=== PATIENT | female | born 1995 | race Caucasian/White ===

== ENCOUNTER 2018-08-23 13:50 | Emergency (ER) | payer OTHER, MEDICAID, SELFPAY ==
[2018-08-23 13:55] VITALS: BP 103/69; PULSE 92; RESP 20; TEMP 36.8; O2SAT 94
--- NOTE | 2018-08-23 14:39 | ED.PREGNANCY ---
HPI - <LESLIE Hull - Last Filed: 08/23/18 19:59> General Chief complaint: Vaginal Bleeding Stated complaint: 8 WEEKS AND SPOTTING Time Seen by Provider: 08/23/18 14:39 Source: patient and family Mode of arrival: ambulatory Limitations: no limitations History of Present Illness HPI Narrative: Patient presents with chief complaint vaginal bleeding for 2 days. She states that she is having some vaginal bleeding when she wipes after she urinates. She denies any dysuria urgency or frequency. She states she is about 8 weeks . She denies vaginal symptoms including vaginal discharge. She denies any abdominal pain or cramping. She does note that she passed some small clots earlier today. She denies any fevers. Related Data Previous Rx's Medication Instructions Recorded cephalexin 500 mg PO BID #20 cap 08/23/18 Allergies Allergy/AdvReac Type Severity Reaction Status Date / Time No Known Drug Allergies Allergy Verified 08/23/18 13:55 Review of Systems <LESLIE Hull - Last Filed: 08/23/18 19:59> Review of Systems GENERAL: Denies chills, fatigue, malaise, fever, sweats. HEENT: Denies sinus pain, ear pain, sore throat, difficulty swallowing, dizziness. RESPIRATORY: Denies dyspnea, cough, wheezing, hemoptysis, sputum. CARDIOVASCULAR: Denies chest pain, palpitations, orthopnea, edema, GASTROINTESTINAL: Denies nausea, vomiting, abdominal pain, diarrhea, constipation, melena. : See HPI MUSCULOSKELETAL: denies weakness, joint pain, or bony pain SKIN: Denies rash, skin lesions, or other NEUROLOGIC: Denies weakness, headache, numbness, change in speech, confusion, seizures, incoordination. PSYCHIATRIC: No concerning psychosocial issues. 12 point review of systems is negative except for those stated above Exam <LESLIE Hull - Last Filed: 08/23/18 19:59> Narrative Exam Narrative: GENERAL: This is a well-nourished, well-developed patient, in no acute distress HEAD: Atraumatic. Normocephalic. No temporal or scalp tenderness. EYES: Pupils equal round and reactive. Extraocular motions intact. No scleral icterus. No injection or drainage. ENT: Nose without bleeding, purulent drainage or septal hematoma. Throat without erythema, tonsillar hypertrophy or exudate. Uvula midline. Airway patent. NECK: Trachea midline. No JVD or lymphadenopathy. Supple, nontender, no meningeal signs. CARDIOVASCULAR: Regular rate and rhythm without murmurs, gallops, or rubs. RESPIRATORY: Clear to auscultation. Breath sounds equal bilaterally. No wheezes, rales, or rhonchi. GASTROINTESTINAL: Abdomen soft, non-tender, nondistended. No hepato-splenomegaly, or palpable masses. No guarding. No suprapubic pain to palpation. Active bowel sounds all 4 quadrants. EXTREMITIES: No clubbing, cyanosis, or edema. No joint tenderness, effusion, or edema noted. BACK: Nontender without deformity or crepitance. No flank tenderness. NEURO: AOx3. SKIN: No rash or erythema. Initial Vital Signs Initial Vital Signs: Vital Signs Temperature 98.2 F 08/23/18 13:55 Pulse Rate 92 H 08/23/18 13:55 Respiratory Rate 20 08/23/18 13:55 Blood Pressure 103/69 08/23/18 13:55 Pulse Oximetry 94 08/23/18 13:55 <Ponce Jaems DO - Last Filed: 08/27/18 07:15> Initial Vital Signs Initial Vital Signs: Vital Signs Temperature 98.2 F 08/23/18 13:55 Pulse Rate 92 H 08/23/18 13:55 Respiratory Rate 20 08/23/18 13:55 Blood Pressure 103/69 08/23/18 13:55 Pulse Oximetry 94 08/23/18 13:55 Course <LESLIE Hull - Last Filed: 08/23/18 19:59> Orders Ordered: ED Orders 08/23/18 14:54 US OB <= 14 weeks fetus Stat 08/23/18 15:20 ABO RH Type Stat Complete Blood Count AUTO DIFF Stat HCG Quantitative Stat 08/23/18 16:51 Urine Microscopic Stat Vital Signs - 8 hr 08/23/18 13:55 08/23/18 18:10 Temperature 98.2 F Pulse Rate 92 H 79 Respiratory Rate 20 18 Blood Pressure 103/69 100/65 Pulse Oximetry 94 99 <Ponce James DO - Last Filed: 08/27/18 07:15> Orders Ordered: ED Orders 08/23/18 14:54 US OB <= 14 weeks fetus Stat 08/23/18 15:20 ABO RH Type Stat Complete Blood Count AUTO DIFF Stat HCG Quantitative Stat 08/23/18 16:51 Urine Microscopic Stat Vital Signs - 8 hr 08/23/18 13:55 08/23/18 18:10 Temperature 98.2 F Pulse Rate 92 H 79 Respiratory Rate 20 18 Blood Pressure 103/69 100/65 Pulse Oximetry 94 99 MDM - OB/Uterine Contractions <RAQUEL Hull-BC - Last Filed: 08/23/18 19:59> Lab Data Result diagrams: 08/23/18 15:20 Lab Results 08/23/18 08/23/18 08/23/18 Range/Units 15:20 15:20 15:20 WBC 10.7 (4.5-11.0) X10^3/uL RBC 4.63 (4.0-5.2) X10^6/uL Hgb 13.8 (12.0-16.0) g/dL Hct 41.2 (36-46) % MCV 89.1 (80-100) fL MCH 29.8 (26-34) PG MCHC 33.4 (30-36) % RDW 13.0 (11.6-14.8) % Plt Count 236 (150-400) X10^3/uL Neut % (Auto) 70.5 (50-75) % Lymph % (Auto) 22.8 L (25-40) % [place] % (Auto) 4.5 (3-14) % Eos % (Auto) 1.6 L (2-4) % Baso % (Auto) 0.6 (0-2) % Neut # (Auto) 7600 H (0602-3260) /uL HCG, Quant 53001 mIU/mL Urine RBC (0-5/HPF) Urine WBC (0-5/HPF) Ur Squamous Epith Cells Urine Bacteria (None) Ur Culture Indicated? Micro UA Comment Blood Type A Positive 08/23/18 Range/Units 16:51 WBC (4.5-11.0) X10^3/uL RBC (4.0-5.2) X10^6/uL Hgb (12.0-16.0) g/dL Hct (36-46) % MCV (80-100) fL MCH (26-34) PG MCHC (30-36) % RDW (11.6-14.8) % Plt Count (150-400) X10^3/uL Neut % (Auto) (50-75) % Lymph % (Auto) (25-40) % [place] % (Auto) (3-14) % Eos % (Auto) (2-4) % Baso % (Auto) (0-2) % Neut # (Auto) (4646-6927) /uL HCG, Quant mIU/mL Urine RBC 1-5/hpf (0-5/HPF) Urine WBC 0-1/hpf (0-5/HPF) Ur Squamous Epith Cells 1-5 /hpf Urine Bacteria Few (2-10) H (None) Ur Culture Indicated? Not Reportable Micro UA Comment Not Reportable Blood Type Imaging Data US - abdomen: Radiologist's impression: [address] [address] Ultrasound Report Signed Patient: Yomaira Hernandez AMR#: [id number] : 1995Acct:[id number] Age/Sex: 23 / FDate of Service: 08/23/18 Loc: ED Accession Number: [id number] Procedure: US OB <= 14 weeks fetus Ordering Provider: Rosa Griggs- PROCEDURE: US OB <= 14 WEEKS FETUS INDICATIONS: Vaginal bleeding. OUTSIDE/PRIOR DATING DATA: Last menstrual period (LMP): 06/25/2018. LMP-based estimated date of delivery (YVES): Not available. First dating scan (date and location): Not available. Estimated date of delivery (YVES) from first dating scan: Not available. TECHNIQUE: Real-time scanning was performed of the fetus and maternal pelvic organs, with image documentation. COMPARISON: None. FINDINGS: Embryo: An intrauterine gestational sac is identified. No yolk sac or pole can be identified at this time. Gestational sac diameter measures 1.4 x 1.6 x 1.3 cm, for an average estimated gestational age of 6 weeks 2 days. Measurement variability in dating: +/- 4 weeks by LMP, +/- 7 days by mean sac diameter (use before 6 weeks gestation if crown-rump length not able to be measured), +/- 5 days by crown-rump length (up to 8 weeks 6 days gestation), +/- 7 days by crown-rump length (up to 13 weeks 6 days gestation). Maternal organs: Ovaries not seen on this exam. Limited images through the kidneys demonstrate no hydronephrosis. There is a possible 8mm linear echogenic focus in the right kidney which may represent a nonobstructing nephrolith. IMPRESSION: #1. 1.6 x 1.4 x 1.3 cm intrauterine gestational sac, for an average estimated gestational age of 6 weeks 2 days. Please note that no yolk sac, pole, or embryo can be identified at this time, although it may be too early in the to clearly identify these structures. Followup ultrasound with possible CROWN BLOCKER consultation recommended for further evaluation. #2. Ovaries not seen on this exam. #3. Possible 8mm linear echogenic focus in the right kidney may represent a nonobstructing nephrolith. Dictated by: Wilian Padron M.D. on 08/23/2018 at 17:03 Approved by: Wilian Padron M.D. on 08/23/2018 at 17:16 MDM Narrative Medical decision making narrative: Patient presents for chief complaint vaginal bleeding for the past 2 days. This occurs when she wipes only. She is 8 weeks approximately. She denies any abdominal pain. She was noted to have bacteria in her urinalysis, so I will initiate treatment for urinary tract infection with Keflex. Ultrasound showed concern of a blighted ovum. I discussed at length follow up with her primary care provider for reimaging and repeat beta-hCG testing. She had no questions or concerns upon discharge. We discussed return precautions including lightheadedness, dizziness and severe vaginal bleeding. <Ponce James, DO - Last Filed: 08/27/18 07:15> Lab Data Lab Results 08/23/18 08/23/18 08/23/18 Range/Units 15:20 15:20 15:20 WBC 10.7 (4.5-11.0) X10^3/uL RBC 4.63 (4.0-5.2) X10^6/uL Hgb 13.8 (12.0-16.0) g/dL Hct 41.2 (36-46) % MCV 89.1 (80-100) fL MCH 29.8 (26-34) PG MCHC 33.4 (30-36) % RDW 13.0 (11.6-14.8) % Plt Count 236 (150-400) X10^3/uL Neut % (Auto) 70.5 (50-75) % Lymph % (Auto) 22.8 L (25-40) % [place] % (Auto) 4.5 (3-14) % Eos % (Auto) 1.6 L (2-4) % Baso % (Auto) 0.6 (0-2) % Neut # (Auto) 7600 H (3814-1685) /uL HCG, Quant 40600 mIU/mL Urine RBC (0-5/HPF) Urine WBC (0-5/HPF) Ur Squamous Epith Cells Urine Bacteria (None) Ur Culture Indicated? Micro UA Comment Blood Type A Positive 08/23/18 Range/Units 16:51 WBC (4.5-11.0) X10^3/uL RBC (4.0-5.2) X10^6/uL Hgb (12.0-16.0) g/dL Hct (36-46) % MCV (80-100) fL MCH (26-34) PG MCHC (30-36) % RDW (11.6-14.8) % Plt Count (150-400) X10^3/uL Neut % (Auto) (50-75) % Lymph % (Auto) (25-40) % [place] % (Auto) (3-14) % Eos % (Auto) (2-4) % Baso % (Auto) (0-2) % Neut # (Auto) (6514-8853) /uL HCG, Quant mIU/mL Urine RBC 1-5/hpf (0-5/HPF) Urine WBC 0-1/hpf (0-5/HPF) Ur Squamous Epith Cells 1-5 /hpf Urine Bacteria Few (2-10) H (None) Ur Culture Indicated? Not Reportable Micro UA Comment Not Reportable Blood Type Discharge Plan Departure Patient Disposition: Home Clinical Impression: UTI (urinary tract infection), Threatened miscarriage Discharge Date/Time: 08/23/18 18:11 Interventions: ED Discharge Assessment Last Done: 08/23/18 18:10 Instructions: DI for Urinary Tract Infection (UTI), DI for Vaginal Bleeding During Activity Restrictions/Additional Instructions: I am starting you on an antibiotic given the bacteria in your urine. This will treat a urinary tract infection. I would like you to follow up with you primary care provider given your ultrasound results and her vaginal bleeding. You will need to have your beta HCG trended as well as possible future imaging. Please come back to the emergency department for any acute concerns, including signs ear urinary tract infection is worsening. This could include flank pain, fever as well as severe vaginal bleeding or lightheadedness. Please call your primary care provider tomorrow. Prescriptions: New cephalexin 500 mg capsule 500 mg PO BID Qty: 20 RF: 0 Referrals: Joshua Hooker MD [Primary Care Provider] - <Ponce James DO - Last Filed: 08/27/18 07:15> Cosign ED Attending [place] Attestation: I was available for consultation during this patient's emergency department encounter
--- NOTE | 2018-08-23 14:54 | DI.US.S_ITS ---
PROCEDURE: US OB <= 14 WEEKS FETUS INDICATIONS: Vaginal bleeding. OUTSIDE/PRIOR DATING DATA: Last menstrual period (LMP): 06/25/2018. LMP-based estimated date of delivery (YVES): Not available. First dating scan (date and location): Not available. Estimated date of delivery (YVES) from first dating scan: Not available. TECHNIQUE: Real-time scanning was performed of the fetus and maternal pelvic organs, with image documentation. COMPARISON: None. FINDINGS: Embryo: An intrauterine gestational sac is identified. No yolk sac or pole can be identified at this time. Gestational sac diameter measures 1.4 x 1.6 x 1.3 cm, for an average estimated gestational age of 6 weeks 2 days. Measurement variability in dating: +/- 4 weeks by LMP, +/- 7 days by mean sac diameter (use before 6 weeks gestation if crown-rump length not able to be measured), +/- 5 days by crown-rump length (up to 8 weeks 6 days gestation), +/- 7 days by crown-rump length (up to 13 weeks 6 days gestation). Maternal organs: Ovaries not seen on this exam. Limited images through the kidneys demonstrate no hydronephrosis. There is a possible 8mm linear echogenic focus in the right kidney which may represent a nonobstructing nephrolith. IMPRESSION: #1. 1.6 x 1.4 x 1.3 cm intrauterine gestational sac, for an average estimated gestational age of 6 weeks 2 days. Please note that no yolk sac, pole, or embryo can be identified at this time, although it may be too early in the to clearly identify these structures. Followup ultrasound with possible ELEMENTARY PRINCIPAL consultation recommended for further evaluation. #2. Ovaries not seen on this exam. #3. Possible 8mm linear echogenic focus in the right kidney may represent a nonobstructing nephrolith. Dictated by: Wilian Padron M.D. on 08/23/2018 at 17:03 Approved by: Wilian Padron M.D. on 08/23/2018 at 17:16
[2018-08-23 15:30] LABS: Add Manual Diff / Slide Review NO; Basophils Percent Auto 0.6 % (0-2); Eosinophils Percent Auto 1.6 % (2-4); Hematocrit 41.2 % (36-46); Hemoglobin 13.8 g/dL (12.0-16.0); Lymphocytes Percent Auto 22.8 % (25-40); Mean Corpuscular HGB Conc 33.4 % (30-36); Mean Corpuscular Hemoglobin 29.8 PG (26-34); Mean Corpuscular Volume 89.1 fL (80-100); Monocytes Percent Auto 4.5 % (3-14); Neutrophils Absolute Auto 7600 /uL (3000-5900); Neutrophils Percent Auto 70.5 % (50-75); Platelet Count 236 X10^3/uL (150-400); Red Blood Cell Count 4.63 X10^6/uL (4.0-5.2); White Blood Cell Count 10.7 X10^3/uL (4.5-11.0)
[2018-08-23 16:04] LABS: HCG Quantitative /Beta subunit 13713 mIU/mL
[2018-08-23 17:16] LABS: Bacteria Urine Few (2-10); RBC Urine 1-5/HPF (0-5/HPF); Squamous Epithelial Cell Urine 1-5 /HPF; WBC Urine 0-1/HPF (0-5/HPF)
--- NOTE | 2018-08-23 17:48 | ED_ITS ---
HPI - <LESLIE Hull - Last Filed: 08/23/18 19:59> General Chief complaint: Vaginal Bleeding Stated complaint: 8 WEEKS AND SPOTTING Time Seen by Provider: 08/23/18 14:39 Source: patient and family Mode of arrival: ambulatory Limitations: no limitations History of Present Illness HPI Narrative: Patient presents with chief complaint vaginal bleeding for 2 days. She states that she is having some vaginal bleeding when she wipes after she urinates. She denies any dysuria urgency or frequency. She states she is about 8 weeks . She denies vaginal symptoms including vaginal discharge. She denies any abdominal pain or cramping. She does note that she passed some small clots earlier today. She denies any fevers. Related Data Previous Rx's Medication Instructions Recorded cephalexin 500 mg PO BID #20 cap 08/23/18 Allergies Allergy/AdvReac Type Severity Reaction Status Date / Time No Known Drug Allergies Allergy Verified 08/23/18 13:55 Review of Systems <LESLIE Hull - Last Filed: 08/23/18 19:59> Review of Systems GENERAL: Denies chills, fatigue, malaise, fever, sweats. HEENT: Denies sinus pain, ear pain, sore throat, difficulty swallowing, dizziness. RESPIRATORY: Denies dyspnea, cough, wheezing, hemoptysis, sputum. CARDIOVASCULAR: Denies chest pain, palpitations, orthopnea, edema, GASTROINTESTINAL: Denies nausea, vomiting, abdominal pain, diarrhea, constipation, melena. : See HPI MUSCULOSKELETAL: denies weakness, joint pain, or bony pain SKIN: Denies rash, skin lesions, or other NEUROLOGIC: Denies weakness, headache, numbness, change in speech, confusion, seizures, incoordination. PSYCHIATRIC: No concerning psychosocial issues. 12 point review of systems is negative except for those stated above Exam <LESLIE Hull - Last Filed: 08/23/18 19:59> Narrative Exam Narrative: GENERAL: This is a well-nourished, well-developed patient, in no acute distress HEAD: Atraumatic. Normocephalic. No temporal or scalp tenderness. EYES: Pupils equal round and reactive. Extraocular motions intact. No scleral icterus. No injection or drainage. ENT: Nose without bleeding, purulent drainage or septal hematoma. Throat without erythema, tonsillar hypertrophy or exudate. Uvula midline. Airway patent. NECK: Trachea midline. No JVD or lymphadenopathy. Supple, nontender, no meningeal signs. CARDIOVASCULAR: Regular rate and rhythm without murmurs, gallops, or rubs. RESPIRATORY: Clear to auscultation. Breath sounds equal bilaterally. No wheezes , rales, or rhonchi. GASTROINTESTINAL: Abdomen soft, non-tender, nondistended. No hepato-splenomegaly , or palpable masses. No guarding. No suprapubic pain to palpation. Active bowel sounds all 4 quadrants. EXTREMITIES: No clubbing, cyanosis, or edema. No joint tenderness, effusion, or edema noted. BACK: Nontender without deformity or crepitance. No flank tenderness. NEURO: AOx3. SKIN: No rash or erythema. Initial Vital Signs Initial Vital Signs: Vital Signs Temperature 98.2 F 08/23/18 13:55 Pulse Rate 92 H 08/23/18 13:55 Respiratory Rate 20 08/23/18 13:55 Blood Pressure 103/69 08/23/18 13:55 Pulse Oximetry 94 08/23/18 13:55 <Ponce James DO - Last Filed: 08/27/18 07:15> Initial Vital Signs Initial Vital Signs: Vital Signs Temperature 98.2 F 08/23/18 13:55 Pulse Rate 92 H 08/23/18 13:55 Respiratory Rate 20 08/23/18 13:55 Blood Pressure 103/69 08/23/18 13:55 Pulse Oximetry 94 08/23/18 13:55 Course <LESLIE Hull - Last Filed: 08/23/18 19:59> Orders Ordered: ED Orders 08/23/18 14:54 US OB <= 14 weeks fetus Stat 08/23/18 15:20 ABO RH Type Stat Complete Blood Count AUTO DIFF Stat HCG Quantitative Stat 08/23/18 16:51 Urine Microscopic Stat Vital Signs - 8 hr 08/23/18 13:55 08/23/18 18:10 Temperature 98.2 F Pulse Rate 92 H 79 Respiratory Rate 20 18 Blood Pressure 103/69 100/65 Pulse Oximetry 94 99 <Ponce James DO - Last Filed: 08/27/18 07:15> Orders Ordered: ED Orders 08/23/18 14:54 US OB <= 14 weeks fetus Stat 08/23/18 15:20 ABO RH Type Stat Complete Blood Count AUTO DIFF Stat HCG Quantitative Stat 08/23/18 16:51 Urine Microscopic Stat Vital Signs - 8 hr 08/23/18 13:55 08/23/18 18:10 Temperature 98.2 F Pulse Rate 92 H 79 Respiratory Rate 20 18 Blood Pressure 103/69 100/65 Pulse Oximetry 94 99 MDM - OB/Uterine Contractions <RAQUEL Hull-BC - Last Filed: 08/23/18 19:59> Lab Data Result diagrams: 08/23/18 15:20 Lab Results 08/23/18 08/23/18 08/23/18 Range/Units 15:20 15:20 15:20 WBC 10.7 (4.5-11.0) X10^3/uL RBC 4.63 (4.0-5.2) X10^6/uL Hgb 13.8 (12.0-16.0) g/dL Hct 41.2 (36-46) % MCV 89.1 (80-100) fL MCH 29.8 (26-34) PG MCHC 33.4 (30-36) % RDW 13.0 (11.6-14.8) % Plt Count 236 (150-400) X10^3/uL Neut % (Auto) 70.5 (50-75) % Lymph % (Auto) 22.8 L (25-40) % [place] % (Auto) 4.5 (3-14) % Eos % (Auto) 1.6 L (2-4) % Baso % (Auto) 0.6 (0-2) % Neut # (Auto) 7600 H (8849-8302) /uL HCG, Quant 24594 mIU/mL Urine RBC (0-5/HPF) Urine WBC (0-5/HPF) Ur Squamous Epith Cells Urine Bacteria (None) Ur Culture Indicated? Micro UA Comment Blood Type A Positive 08/23/18 Range/Units 16:51 WBC (4.5-11.0) X10^3/uL RBC (4.0-5.2) X10^6/uL Hgb (12.0-16.0) g/dL Hct (36-46) % MCV (80-100) fL MCH (26-34) PG MCHC (30-36) % RDW (11.6-14.8) % Plt Count (150-400) X10^3/uL Neut % (Auto) (50-75) % Lymph % (Auto) (25-40) % [place] % (Auto) (3-14) % Eos % (Auto) (2-4) % Baso % (Auto) (0-2) % Neut # (Auto) (3407-0984) /uL HCG, Quant mIU/mL Urine RBC 1-5/hpf (0-5/HPF) Urine WBC 0-1/hpf (0-5/HPF) Ur Squamous Epith Cells 1-5 /hpf Urine Bacteria Few (2-10) H (None) Ur Culture Indicated? Not Reportable Micro UA Comment Not Reportable Blood Type Imaging Data US - abdomen: Radiologist's impression: [address] [address] Ultrasound Report Signed Patient: Yomaira Hernandez AMR#: [id number] : 1995Acct:[id number] Age/Sex: 23 / FDate of Service: 08/23/18 Loc: ED Accession Number: [id number] Procedure: US OB <= 14 weeks fetus Ordering Provider: Rosa Griggs- PROCEDURE: US OB <= 14 WEEKS FETUS INDICATIONS: Vaginal bleeding. OUTSIDE/PRIOR DATING DATA: Last menstrual period (LMP): 06/25/2018. LMP-based estimated date of delivery (YVES): Not available. First dating scan (date and location): Not available. Estimated date of delivery (YVES) from first dating scan: Not available. TECHNIQUE: Real-time scanning was performed of the fetus and maternal pelvic organs, with image documentation. COMPARISON: None. FINDINGS: Embryo: An intrauterine gestational sac is identified. No yolk sac or pole can be identified at this time. Gestational sac diameter measures 1.4 x 1.6 x 1.3 cm, for an average estimated gestational age of 6 weeks 2 days. Measurement variability in dating: +/- 4 weeks by LMP, +/- 7 days by mean sac diameter (use before 6 weeks gestation if crown-rump length not able to be measured), +/ - 5 days by crown-rump length (up to 8 weeks 6 days gestation), +/- 7 days by crown-rump length (up to 13 weeks 6 days gestation). Maternal organs: Ovaries not seen on this exam. Limited images through the kidneys demonstrate no hydronephrosis. There is a possible 8mm linear echogenic focus in the right kidney which may represent a nonobstructing nephrolith. IMPRESSION: #1. 1.6 x 1.4 x 1.3 cm intrauterine gestational sac, for an average estimated gestational age of 6 weeks 2 days. Please note that no yolk sac, pole, or embryo can be identified at this time, although it may be too early in the to clearly identify these structures. Followup ultrasound with possible JAVA DEVELOPMENT TEAM LEAD consultation recommended for further evaluation. #2. Ovaries not seen on this exam. #3. Possible 8mm linear echogenic focus in the right kidney may represent a nonobstructing nephrolith. Dictated by: Wilian Padron M.D. on 08/23/2018 at 17:03 Approved by: Wilian Padron M.D. on 08/23/2018 at 17:16 MDM Narrative Medical decision making narrative: Patient presents for chief complaint vaginal bleeding for the past 2 days. This occurs when she wipes only. She is 8 weeks approximately. She denies any abdominal pain. She was noted to have bacteria in her urinalysis, so I will initiate treatment for urinary tract infection with Keflex. Ultrasound showed concern of a blighted ovum. I discussed at length follow up with her primary care provider for reimaging and repeat beta-hCG testing. She had no questions or concerns upon discharge. We discussed return precautions including lightheadedness, dizziness and severe vaginal bleeding. <Ponce James, DO - Last Filed: 08/27/18 07:15> Lab Data Lab Results 08/23/18 08/23/18 08/23/18 Range/Units 15:20 15:20 15:20 WBC 10.7 (4.5-11.0) X10^3/uL RBC 4.63 (4.0-5.2) X10^6/uL Hgb 13.8 (12.0-16.0) g/dL Hct 41.2 (36-46) % MCV 89.1 (80-100) fL MCH 29.8 (26-34) PG MCHC 33.4 (30-36) % RDW 13.0 (11.6-14.8) % Plt Count 236 (150-400) X10^3/uL Neut % (Auto) 70.5 (50-75) % Lymph % (Auto) 22.8 L (25-40) % [place] % (Auto) 4.5 (3-14) % Eos % (Auto) 1.6 L (2-4) % Baso % (Auto) 0.6 (0-2) % Neut # (Auto) 7600 H (6173-5870) /uL HCG, Quant 76338 mIU/mL Urine RBC (0-5/HPF) Urine WBC (0-5/HPF) Ur Squamous Epith Cells Urine Bacteria (None) Ur Culture Indicated? Micro UA Comment Blood Type A Positive 08/23/18 Range/Units 16:51 WBC (4.5-11.0) X10^3/uL RBC (4.0-5.2) X10^6/uL Hgb (12.0-16.0) g/dL Hct (36-46) % MCV (80-100) fL MCH (26-34) PG MCHC (30-36) % RDW (11.6-14.8) % Plt Count (150-400) X10^3/uL Neut % (Auto) (50-75) % Lymph % (Auto) (25-40) % [place] % (Auto) (3-14) % Eos % (Auto) (2-4) % Baso % (Auto) (0-2) % Neut # (Auto) (7387-4210) /uL HCG, Quant mIU/mL Urine RBC 1-5/hpf (0-5/HPF) Urine WBC 0-1/hpf (0-5/HPF) Ur Squamous Epith Cells 1-5 /hpf Urine Bacteria Few (2-10) H (None) Ur Culture Indicated? Not Reportable Micro UA Comment Not Reportable Blood Type Discharge Plan Departure Patient Disposition: Home Clinical Impression: UTI (urinary tract infection), Threatened miscarriage Discharge Date/Time: 08/23/18 18:11 Interventions: ED Discharge Assessment Last Done: 08/23/18 18:10 Instructions: DI for Urinary Tract Infection (UTI), DI for Vaginal Bleeding During Activity Restrictions/Additional Instructions: I am starting you on an antibiotic given the bacteria in your urine. This will treat a urinary tract infection. I would like you to follow up with you primary care provider given your ultrasound results and her vaginal bleeding. You will need to have your beta HCG trended as well as possible future imaging. Please come back to the emergency department for any acute concerns, including signs ear urinary tract infection is worsening. This could include flank pain, fever as well as severe vaginal bleeding or lightheadedness. Please call your primary care provider tomorrow. Prescriptions: New cephalexin 500 mg capsule 500 mg PO BID Qty: 20 RF: 0 Referrals: Joshua Hooker MD [Primary Care Provider] - <Ponce James DO - Last Filed: 08/27/18 07:15> Cosign ED Attending [place] Attestation: I was available for consultation during this patient's emergency department encounter
[2018-08-23 18:10] VITALS: BP 100/65; PULSE 79; RESP 18; O2SAT 99
== END 2018-08-23 18:11 | disposition home or self-care (01) ==
PROVIDERS: Emergency Provider Nurse Practitioner Family; Family Provider Family Medicine; PCP Family Medicine
DX: O20.0 Threatened abortion (principal); O23.41 Unspecified infection of urinary tract in pregnancy, first trimester; Z3A.08 8 weeks gestation of pregnancy
CPT/HCPCS: 36415; 76801; 76817; 81015; 84702; 85025; 86900; 86901; 99282; 99284

== ENCOUNTER → 2019-04-16 15:39 | Outpatient (CLI) | payer OTHER, MEDICAID, SELFPAY ==
--- NOTE | 2019-04-16 15:43 | DI.US.S_ITS ---
PROCEDURE: US OB <= 14 WEEKS FETUS INDICATIONS: SIZE AND DATES OUTSIDE/PRIOR DATING DATA: Last menstrual period (LMP): 02/21/19. LMP-based estimated date of delivery (YVES): 11/28/19. First dating scan (date and location): 04/16/19. Estimated date of delivery (YVES) from first dating scan: 12/03/19. TECHNIQUE: Real-time scanning was performed of the fetus and maternal pelvic organs, with image documentation. Endovaginal scanning was also performed to better visualize the fetus and maternal ovaries. COMPARISON: [facility], OB <= 14 WEEKS FETUS, 08/23/2018, 16:32. FINDINGS: Embryo: An single living intrauterine fetus present with a crown-rump length measuring 7 weeks zero days. heart rate measures 143 beats per minute. Yolk sac noted. Measurement variability in dating: +/- 4 weeks by LMP, +/- 7 days by mean sac diameter (use before 6 weeks gestation if crown-rump length not able to be measured), +/- 5 days by crown-rump length (up to 8 weeks 6 days gestation), +/- 7 days by crown-rump length (up to 13 weeks 6 days gestation). Maternal organs: Ovaries unremarkable except for a presumed right ovarian corpus luteum. 1.5 cm simple appearing right ovarian cyst. Limited images through the kidneys demonstrate no hydronephrosis. IMPRESSION: Single living intrauterine fetus with gestational age measuring 7 weeks zero days, corresponding to an YVES of 12/03/19 which is concordant with the reported LMP as above. Dictated by: Camron Palmer M.D. on 04/16/2019 at 17:11 Approved by: Camron Palmer M.D. on 04/16/2019 at 17:15
== END ==
PROVIDERS: PCP Family Medicine; Visit Provider Family Medicine
DX: Z34.91 Encounter for supervision of normal pregnancy, unspecified, first trimester (principal); Z3A.01 Less than 8 weeks gestation of pregnancy
CPT/HCPCS: 76801; 76817

== ENCOUNTER → 2019-07-09 08:55 | Outpatient (CLI) | payer OTHER, MEDICAID, SELFPAY ==
--- NOTE | 2019-07-09 | DI.US.S_ITS ---
PROCEDURE: US OB >= 14 WEEKS FETUS INDICATIONS: ANATOMY SCAN OUTSIDE/PRIOR DATING DATA: Last menstrual period (LMP): 02/21/19. LMP-based estimated date of delivery (YVES): 11/28/19. First dating scan (date and location): 04/16/19. Estimated date of delivery (YVES) from first dating scan: 12/03/19.. TECHNIQUE: Real-time scanning was performed of the fetus, with image documentation and biometric measurements. Endovaginal scanning: No COMPARISON: None. FINDINGS: General: A single living intrauterine gestation is present. Presentation: Breech. Placenta: Placental position is anterior, without previa. Amniotic fluid index: 16.9 cm, normal range is 5-24 cm. heart rate: 131 beats per minute. Maternal cervical canal: 3.2 cm long. Normal lower limit is 2.5 cm. biometrics: Biparietal diameter: 19 weeks 4 days Head circumference: 19 weeks 4 days Abdominal circumference: 19 weeks 3 days Femur length: 19 weeks 1 day Estimated gestational age from initial scan: 19 weeks 0 days Composite gestational age from present scan: 19 weeks 3 days Estimated weight and percentile: 287 g; 66 percentile Measurement variability for biometric dating: +/- 7 days from 14 weeks to 15 weeks 6 days gestation, +/- 10 days from 16 weeks to 21 weeks 6 days gestation, +/- 2 weeks from 22 weeks to 27 weeks 6 days gestation, +/- 3 weeks for 28 weeks gestation or later. weight reference: 4500 g or EFW >90/95% is considered macrosomia or large for gestational age. EFW <10% is small for gestational age. EFW 5% or less is considered intra-uterine growth restriction. Anatomic survey: Neuro: Ventricles are non-dilated at less than 10 mm. Cisterna magna is normal at 3-11 mm. Cerebellum is normal in size and morphology. Nuchal skin fold: Normal at less than 6 mm between 14-21 weeks gestational age. Face: Nose and lips are normal and the facial profile not well-seen. Spine: No evidence for spina bifida. Heart: 4-chambered heart is present, with normal ventricular outflow tracts. Diaphragm: Diaphragm is intact. Stomach: Left-sided stomach is present. Kidneys: No hydronephrosis. Normal is less than 5 mm in 2nd trimester, less than 7 mm in 3rd trimester. Cord: 3-vessel cord has orthotopic insertion. Bladder: Normal in size. Extremities: All 4 extremities identified. IMPRESSION: 1. Normal interval growth. 2. Facial profile not well-visualized; otherwise normal anatomy. Dictated by: Jay PACE Interpreted: Lorena Calhoun MD on 07/09/2019 at 16:05 Approved by: Lorena Calhoun M.D. on 07/09/2019 at 16:17
== END ==
PROVIDERS: Visit Provider Family Medicine
DX: Z36.89 Encounter for other specified antenatal screening (principal); Z3A.19 19 weeks gestation of pregnancy
CPT/HCPCS: 76811

== ENCOUNTER → 2019-11-01 18:38 | Outpatient (ROUT) | payer OTHER, MEDICAID, SELFPAY | PROVIDERS: Visit Provider Family Medicine | DX: Z36.85 Encounter for antenatal screening for Streptococcus B (principal) | CPT/HCPCS: 87081 ==

== ENCOUNTER 2019-12-01 18:52 | Observation (INO) | payer OTHER, MEDICAID, SELFPAY ==
[2019-12-01 21:13] LABS: Add Manual Diff / Slide Review NO; Basophils Absolute Auto 0 /uL (0-100); Basophils Percent Auto 0.2 % (0-2); Eosinophils Absolute Auto 200 /uL (0-450); Eosinophils Percent Auto 1.1 % (2-4); Hemoglobin 12.7 g/dL (12.0-16.0); Lymphocytes Absolute Auto 2500 /uL (1100-4500); Lymphocytes Percent Auto 17.1 % (25-40); Mean Corpuscular HGB Conc 33.5 % (30-36); Mean Corpuscular Hemoglobin 29.8 PG (26-34); Mean Corpuscular Volume 88.7 fL (80-100); Monocytes Absolute Auto 1000 /uL (0-900); Monocytes Percent Auto 6.5 % (3-14); Neutrophils Absolute Auto 11100 /uL (1500-7000); Neutrophils Percent Auto 75.1 % (50-75); Platelet Count 290 X10^3/uL (150-400); Red Blood Cell Count 4.28 X10^6/uL (4.0-5.2); Red Cell Distribution Width 12.9 % (11.6-14.8); White Blood Cell Count 14.8 X10^3/uL (4.5-11.0)
[2019-12-01] MEDS: miSOPROStoL 25 MCG TABLET VAG (21:30)
[2019-12-02 00:45] VITALS: BP 118/68
[2019-12-02] MEDS: miSOPROStoL 25 MCG TABLET VAG ×2 (01:30→05:33)
--- NOTE | 2019-12-02 07:50 | PM.OBTRLD ---
Visit Information Visit Information Date of evaluation: 12/02/19 Primary OB Provider: Max Peres Reason for Evaluation: Yes other Comments/Additional reasons for admission: Patient is a brought in last night for elective induction at 40 weeks 3/7 weeks . Patient has had an uncomplicated GBS negative no other changes. Hematocrit was stable. Cytotec x3 was placed last night. She did get some moderate cervical change but only had a patient score of 7 this morning. Patient had some slight bloody show. No evidence of rupture. heart monitor was reactive. Vital Signs Vital Signs: Vital Signs - 8 hr 12/02/19 00:45 Blood Pressure 118/68 PFSH Social History Smoking Status: Former smoker Exam Vital Signs (past 8 hours): - 12/02/19 00:45 Blood Pressure 118/68 Narrative Exam Narrative: Alert smiling female no acute distress. Lungs are clear. Heart regular rate and rhythm. Abdomen is soft positive bowel sounds nontender. Gravid. Estimated weight 6-1/2 lb. Sterile vaginal exam shows cervix 1 70% -1 intact vertex. Extremities without cyanosis clubbing edema Objective Labs Result Diagrams: 12/01/19 20:00 Labs: Laboratory Results - last 24 hr 12/01/19 12/01/19 20:00 20:00 WBC 14.8 H RBC 4.28 Hgb 12.7 Hct 38.0 MCV 88.7 MCH 29.8 MCHC 33.5 RDW 12.9 Plt Count 290 Neut % (Auto) 75.1 H Lymph % (Auto) 17.1 L Boone % (Auto) 6.5 Eos % (Auto) 1.1 L Baso % (Auto) 0.2 Neut # (Auto) 67792 H Lymph # (Auto) 2500 Boone # (Auto) 1000 H Eos # (Auto) 200 Baso # (Auto) 0 Blood Type A Positive Antibody Screen Negative Evaluation Evaluation Baseline heart rate: 140 Category of Tracing: I Cervical dilation (cm): 1 Cervical effacement (%): 70 station: -1 Laboratory results: Laboratory Tests 12/01/19 12/01/19 20:00 20:00 WBC 14.8 H RBC 4.28 Hgb 12.7 Hct 38.0 MCV 88.7 MCH 29.8 MCHC 33.5 RDW 12.9 Plt Count 290 Neut % (Auto) 75.1 H Lymph % (Auto) 17.1 L Bo[place] % (Auto) 6.5 Eos % (Auto) 1.1 L Baso % (Auto) 0.2 Neut # (Auto) 18926 H Lymph # (Auto) 2500 Boone # (Auto) 1000 H Eos # (Auto) 200 Baso # (Auto) 0 Blood Type A Positive Antibody Screen Negative Diagnosis, Plan/Disposition Plan/Disposition Plan: 4 4/7 weeks here for elective induction. While she did get some slight change not adequate for Pitocin or rupture. Discussed with patient. Will discharge home with usual labor precautions. She will call if any issues Cervidil tonight. Hopefully proceed tomorrow. OB Disposition: home
== END 2019-12-02 08:45 | disposition home or self-care (01) ==
PROVIDERS: Admitting Provider Family Medicine; Referring Provider Family Medicine; Visit Provider Family Medicine
DX: Z34.03 Encounter for supervision of normal first pregnancy, third trimester (principal); Z3A.40 40 weeks gestation of pregnancy
CPT/HCPCS: 85025; 86850; 86900; 86901; G0378; G0379

== ENCOUNTER 2019-12-02 13:19 | Inpatient (IN) | payer OTHER, MEDICAID, SELFPAY ==
[2019-12-02] MEDS: hydrOXYzine 50 MG/ML INJ 25 MG IM (14:15)
[2019-12-02] MEDS: MEPERIDINE 50 MG/ML INJ IM (14:16)
[2019-12-02 15:15] VITALS: BP 113/80
--- NOTE | 2019-12-02 17:38 | P.HPOB_ITS ---
OB HPI Date/Time Date of admission: 12/02/19 Date Patient Seen: 12/02/19 Time Patient Seen: 17:39 History of Present Condition Chief complaint: MATERNITY : 1 Para: 0 Estimated Date of Delivery: 11/28/19 Estimated Gestational Age (weeks): 40 4\7 Narrative: Yomaira Hernandez is a 24 year old female with EDC of 11/28/2019. Patient overall has had unremarkable . No significant problems or issues GBS negative. Other labs unremarkable. She has had a normal sequential screen without any other issues. Growth has been good. She has had no labor or other issues she was brought in last night for induction for elective and early post dates. She was given 3 Cytotec and not a lot of cervic al change Mitchell score was 7 she came back in with rupture at approximately 11:00 a.m. with clear fluid. Has not had a lot since that time. No other changes. heart monitor is been reactive throughout the course and she is currently asking for pain medication Indications Indication for induction OB: post dates History of Present care: good care Dating criteria: LMP confirmed by 1st trimester US Ultrasounds: normal mid trimester US Obstetrical complications: none Medical complications: none Preadmission Labs Blood type: A (+) positive -: Antibody screen: negative, GBS status: negative, HBsAG: negative, HIV: negative, HSV 1: negative, HSV 2: negative and RPR/VDLR: negative -: Chlamydia screen: not detected and Gonorrhea screen: not detected -: Rubella: immune and Varicella: immune HCAB: negative PAP: Normal Sequential screen: Normal 1 hr GTT: 116 Prior (ies) History: None Evaluation Evaluation Baseline heart rate: 140 Cervical dilation (cm): 3 Cervical effacement (%): 80 station: -1 Non-invasive Membranes Rupture Test: positive [facility] Social History Smoking Status: Former smoker Meds Home Medications and Allergies Allergies Allergy/AdvReac Type Severity Reaction Status Date / Time No Known Drug Allergies Allergy Verified 08/23/18 13:55 Review of Systems Review of Systems ROS: Yes All systems reviewed with the patient and are negative except as otherwise documented Exam Vital Signs (past 8 hours): - 12/02/19 15:15 Blood Pressure 113/80 Narrative Exam Narrative: Alert female intermittently uncomfortable smiling otherwise. Mucous membranes moist. Neck supple without thyromegaly. Lungs are clear. Heart is regular rate and rhythm without murmurs clicks rubs or gallops. Abdomen is gravid vertex extremities without significant edema. Normal reflexes Assessment and Plan Assessment and Plan Assessment and Plan narrative: Forty and 4 7th week intrauterine status post rupture with cervical change. GBS negative heart monitor reactive requesting anesthesia she was previously given Demerol with adequate results but now that were starting to change will place epidural. Contractions are every 1-3 minutes and seemed to be improving in intensity will hold Pitocin for now recheck in 2-4 hours.
[2019-12-02] MEDS: LACTATED RINGERS 1,000 ML 100 ML IV ×2 (18:00→21:57)
[2019-12-02] MEDS: FENT 2MCG/ML BUPIV 0.125% EPI 200 MCG/100 ML PLAST..BAG 10 MCG EPIDURAL (19:01)
[2019-12-02] MEDS: OXYTOCIN PREMIX 30 UNIT/500 ML PLAST..BAG IV (21:57)
[2019-12-02] MEDS: ONDANSETRON 4 MG/2 ML INJ IV (22:52)
[2019-12-03] MEDS: FENT 2MCG/ML BUPIV 0.125% EPI 200 MCG/100 ML PLAST..BAG 10 MCG EPIDURAL (00:45)
[2019-12-03] MEDS: ONDANSETRON 4 MG/2 ML INJ IV (05:15)
--- NOTE | 2019-12-03 07:19 | PM.OBPRVD ---
 Events: Labor Induction Labor & Delivery Delivery date: 12/03/19 Cervical ripening method: per misoprostal protocol Induction method: none Delivery augmentation: pitocin Delivery monitor: external FHT Route of delivery: Episiotomy description: None L&D Laceration Description: None Estimated blood loss (mL): 250 Anesthesia type: Epidural Narrative: Patient was brought in on night before delivery for induction for postdates an elective request. Cytotec was given 3 times a with night and minimal cervical change was obtained. Patient was then sent home. heart monitor throughout the night was excellent. Category 1. Patient at 11:00 a.m. spontaneous rupture of membranes. Yellowish fluid. No other issues. Baby was moving well. Presented to the hospital. heart monitors were excellent. She was given Demerol and Vistaril. Good control. She was then placed into the bath for a few hours. She started having increasing contractions cervix then went from fingertips to 2-3 and 80%. She slowly made change in requested epidural. Placed with excellent results. She had Pitocin started around 11 p.m. and was slowly increased over the night to 12 milliunits. She progressed well. heart monitor was category 1 throughout the 1st stage. She labor down and second-stage began. Patient pushed well. Excellent control. No evidence of significant meconium but otherwise no change. Some heart rate discolorations into the 80s and baby was on perineum. Oxygen was applied. Delivered way over 1st degree jaun urethral tears and small vaginal midline tear. Child up on mom's abdomen. No resuscitation was required. Short cord which was clamped and cut by dad. Placenta delivered spontaneous intact 3 vessels. Pitocin was started at run bolus. Uterus was normal on firm and moderate amount of bleeding. Aggressive fundal massage improved. 800 mcg of Cytotec were applied rectally. No repair was required. Uterus remained firm. No further bleeding. EBL less than 250 cc. Mother and infant in stable condition. Plan for aftercare: Routine care.
[2019-12-03 10:29] VITALS: TEMP 38.3
[2019-12-03] MEDS: ACETAMINOPHEN 325 MG TABLET 650 MG PO ×2 (10:29→20:06)
[2019-12-03 10:30] VITALS: TEMP 38.3
[2019-12-03] MEDS: IBUPROFEN 600 MG TABLET PO ×2 (10:30→20:04)
[2019-12-03] MEDS: LANOLIN OINT 7 GM 1 APPLIC TOP (14:58)
[2019-12-03] MEDS: DERMOPLAST SPRAY 20% 60 ML 1 SPRAY TOP (14:58)
[2019-12-04 06:41] LABS: Hematocrit 30.8 % (36-46); Hemoglobin 10.5 g/dL (12.0-16.0)
[2019-12-04 09:41] VITALS: BP 113/80; PULSE 80; RESP 18; TEMP 36.2
--- NOTE | 2019-12-04 13:53 | PM.DS.1 ---
History of Present Illness History of Present Illness Date Patient Seen: 12/04/19 Time Patient Seen: 08:04 Chief complaint: MATERNITY Narrative: Patient here for evaluation of rupture at 11:00 a.m.. Please see full H&P was ruptured and admitted Discharge Providers Provider Date of admission: 12/02/19 13:19 Discharge Date: 12/04/19 Consults: 12/04/19 07:16 Consult to Medicaid Eligibility Specialist Routine Comment: Discharge provider: Max Peres MD Summary Hospital Course Discharge Diagnosis: Term intrauterine Hospital Course: Please see delivery note. Patient had vaginal delivery and was transferred to recovery. She had minimal bleeding and had no other significant probl. Hematocrit was 30. No other changes. Breast-feeding was going well. No pain. No other changes. Wanted to go home on day 1 and was discharged to home. Status at Discharge Functional status at discharge: independent ambulation Overall status at discharge: patient is progressing back to baseline Time Spent with Patient Time spent: Greater than 30 minutes Exam Vital Signs (past 8 hours): - 12/04/19 09:41 Temperature 97.2 F L Pulse Rate 80 Respiratory Rate 18 Blood Pressure 113/80 Narrative Exam Narrative: Alert smiling female mildly fatigued no acute distress Mucous membranes moist. Neck supple without adenopathy. Lungs are clear. Heart regular rate and rhythm without murmurs clicks rubs gallops. Uterus is firm at umbilicus. Extremities without cyanosis clubbing edema. Objective Labs Result Diagrams: 12/04/19 06:27 Labs: Laboratory Results - last 24 hr 12/04/19 06:27 Hgb 10.5 L Hct 30.8 L Discharge Plan Discharge Plan Patient Disposition: Home Discharge orders & Medications Prescriptions: New ibuprofen 600 mg Tablet 600 mg PO Q6HR PRN (Reason: Pain, Mild (1-3)) Qty: 90 RF: 1 docusate sodium [Colace] 100 mg capsule 100 mg PO BID Qty: 60 RF: 0 Continued Classic 28 mg iron- 800 mcg Tablet 1 tab PO DAILY RF: 0 Follow up/Referrals: Max Peres MD [Physician] - 01/15/20 3:30 pm Diet/Activity/Treatments Diet: Diet as Tolerated Activity: no intercourse six weeks Skin/Wound/Dressing Care Report to your healthcare provider any signs of infection, such as:: chills, fever, night sweats, increased pain, unusual drainage and unusual redness Visit Report/Discharge Packet Stand Alone Forms: Discharge: Care Discharges patient from system. Discharge Date/Time: 12/04/19 12:10
== END 2019-12-04 12:10 | disposition home or self-care (01) | DRG 560 ==
PROVIDERS: Admitting Provider Family Medicine; Referring Provider Family Medicine; Visit Provider Family Medicine
DX: O48.0 Post-term pregnancy (principal); Z3A.40 40 weeks gestation of pregnancy; Z37.0 Single live birth; O77.0 Labor and delivery complicated by meconium in amniotic fluid
CPT/HCPCS: 01967; 36415; 59050; 84112; 85014; 85018; 85025; 86850; 86900; 86901; G0378; G0379; J2175; J2405; J2590; J3410

== ENCOUNTER → 2020-04-28 10:33 | Outpatient (CLI) | payer OTHER, MEDICAID, SELFPAY ==
--- NOTE | 2020-04-28 | DI.US.S_ITS ---
PROCEDURE: US OB <= 14 WEEKS FETUS INDICATIONS: SIZE AND DATES OUTSIDE/PRIOR DATING DATA: First dating scan (date and location): 04/28/20. Estimated date of delivery (YVES) from first dating scan: 12/12/19. TECHNIQUE: Real-time scanning was performed of the fetus and maternal pelvic organs, with image documentation. Endovaginal scanning was also performed to better visualize the fetus and maternal ovaries. COMPARISON: None. FINDINGS: Embryo: Single living intrauterine gestation with an estimated sonographic gestational age of approximately 8 weeks and 6 days based of crown rump length of 2.2 cm. Incidental note of prominent lateral ventricle at the brain. Normal yolk sac. No perigestational hemorrhage. Measurement variability in dating: +/- 4 weeks by LMP, +/- 7 days by mean sac diameter (use before 6 weeks gestation if crown-rump length not able to be measured), +/- 5 days by crown-rump length (up to 8 weeks 6 days gestation), +/- 7 days by crown-rump length (up to 13 weeks 6 days gestation). Maternal organs: Ovaries appear unremarkable with right corpus luteal cyst. Limited images through the kidneys demonstrate no hydronephrosis. IMPRESSION: 1. Single living intrauterine gestation with an estimated sonographic gestational age of approximately 8 weeks and 6 days. 2. Incidental note of prominent lateral ventricle within the brain. Recommend clinical and imaging followup. Attention will be made on routine second trimester anatomic screening survey. Dictated by: Cameron Gandhi M.D. on 04/28/2020 at 14:29 Approved by: Cameron Gandhi M.D. on 04/28/2020 at 14:34
== END ==
PROVIDERS: Referring Provider Family Medicine; Visit Provider Family Medicine
DX: Z36.87 Encounter for antenatal screening for uncertain dates (principal); Z3A.08 8 weeks gestation of pregnancy
CPT/HCPCS: 76801; 76817

== ENCOUNTER → 2020-07-17 09:03 | Outpatient (CLI) | payer OTHER, MEDICAID, SELFPAY ==
--- NOTE | 2020-07-17 | DI.US.S_ITS ---
PROCEDURE: US OB >= 14 WEEKS FETUS INDICATIONS: ANATOMY SCAN OUTSIDE/PRIOR DATING DATA: Last menstrual period (LMP): 02/06/20. LMP-based estimated date of delivery (YVES): 12/02/20 . First dating scan (date and location): 04/28/20 . Estimated date of delivery (YVES) from first dating scan: 12/02/20 . TECHNIQUE: Real-time scanning was performed of the fetus, with image documentation and biometric measurements. Endovaginal scanning: Not needed COMPARISON: [facility], OB >= 14 WEEKS FETUS, 07/09/2019, 9:10. FINDINGS: General: A single living intrauterine gestation is present. Presentation: Transverse. Placenta: Placental position is posterior , without previa. Amniotic fluid index: 16.8 cm, normal range is 5-24 cm. heart rate: 144 beats per minute. Maternal cervical canal: 4.2 cm long. Normal lower limit is 2.5 cm. biometrics: Biparietal diameter: 4.5 cm, 19 weeks 5 days Head circumference: 16.8 cm, 19 weeks 3 days Abdominal circumference: 4.4 cm, 19 weeks 5 days Femur length: 3.0 cm, 19 weeks 3 days Estimated gestational age from initial scan: 19 weeks 3 days Composite gestational age from present scan: 20 weeks 3 days Estimated weight and percentile: 300 g, 13th percentile Measurement variability for biometric dating: +/- 7 days from 14 weeks to 15 weeks 6 days gestation, +/- 10 days from 16 weeks to 21 weeks 6 days gestation, +/- 2 weeks from 22 weeks to 27 weeks 6 days gestation, +/- 3 weeks for 28 weeks gestation or later. weight reference: 4500 g or EFW >90/95% is considered macrosomia or large for gestational age. EFW <10% is small for gestational age. EFW 5% or less is considered intra-uterine growth restriction. Anatomic survey: Neuro: Ventricles are non-dilated at less than 10 mm. Cisterna magna is normal at 3-11 mm. Cerebellum is normal in size and morphology. Nuchal skin fold: Normal at less than 6 mm between 14-21 weeks gestational age. Face: Nose and lips, facial profile are normal. Spine: No evidence for spina bifida. Heart: 4-chambered heart is present, with normal ventricular outflow tracts. Diaphragm: Diaphragm is intact. Stomach: Left-sided stomach is present. Kidneys: No hydronephrosis. Normal is less than 5 mm in 2nd trimester, less than 7 mm in 3rd trimester. Cord: 3-vessel cord has orthotopic insertion. Bladder: Normal in size. Extremities: All 4 extremities identified. IMPRESSION: Appropriate interval growth, normal survey of anatomy, the delivery date is projected to be centered on 12/02/20. Dictated by: Cb Arenas M.D. on 07/17/2020 at 10:52 Approved by: Cb Arenas M.D. on 07/17/2020 at 10:55
== END ==
PROVIDERS: PCP Family Medicine; Referring Provider Family Medicine; Visit Provider Family Medicine
DX: Z36.89 Encounter for other specified antenatal screening (principal); Z3A.20 20 weeks gestation of pregnancy
CPT/HCPCS: 76811

== ENCOUNTER → 2020-11-10 10:01 | Outpatient (ROUT) | payer OTHER, MEDICAID, SELFPAY | PROVIDERS: PCP Family Medicine; Visit Provider Family Medicine | DX: Z34.90 Encounter for supervision of normal pregnancy, unspecified, unspecified trimester (principal) | CPT/HCPCS: 87081; 87147 ==

== ENCOUNTER 2020-12-02 07:00 | Inpatient (IN) | payer OTHER, MEDICAID, SELFPAY ==
[2020-12-02] MEDS: PENICILLIN G POTASSIUM 5,000,000 UNIT in DEXTROSE 5% IN WATER 250 ML IV (08:00)
[2020-12-02] MEDS: LACTATED RINGERS 1,000 ML 100 ML IV (08:00)
[2020-12-02 08:09] LABS: COVID19 -Nasal RAPID Negative (Negative)
[2020-12-02 08:11] LABS: Add Manual Diff / Slide Review NO; Basophils Absolute Auto 100 /uL (0-100); Basophils Percent Auto 0.6 % (0-2); Eosinophils Absolute Auto 100 /uL (0-450); Eosinophils Percent Auto 0.5 % (2-4); Hematocrit 34.1 % (36-46); Hemoglobin 11.5 g/dL (12.0-16.0); Lymphocytes Absolute Auto 2100 /uL (1100-4500); Lymphocytes Percent Auto 18.4 % (25-40); Mean Corpuscular HGB Conc 33.6 % (30-36); Mean Corpuscular Hemoglobin 28.9 PG (26-34); Mean Corpuscular Volume 86.1 fL (80-100); Monocytes Absolute Auto 400 /uL (0-900); Monocytes Percent Auto 3.7 % (3-14); Neutrophils Absolute Auto 8900 /uL (1500-7000); Neutrophils Percent Auto 76.8 % (50-75); Platelet Count 40 X10^3/uL (150-400); Red Blood Cell Count 3.96 X10^6/uL (4.0-5.2); Red Cell Distribution Width 13.7 % (11.6-14.8); White Blood Cell Count 11.6 X10^3/uL (4.5-11.0)
--- NOTE | 2020-12-02 08:53 | P.HPOB_ITS ---
OB HPI History of Present Condition Chief complaint: OBS Narrative: Yomaira Hernandez is a 25 year old female with EDC of December 02, 2020. Good dates. Patient was originally set up for induction for today but beg an having contractions 24 hours ago. She was seen in clinic with having lost her mucus plug. She was previously closed and yesterday was 3 cm. She had no leaking fluid and was feeling good. She was requesting induction and was set up for today. She had been joan all night. Still no leaking of fluid. Came in today and was 7 cm. Baby has been moving. No other changes. Patient otherwise has had an unremarkable without issues. Growth with good. No medical complications patient had negative genetic testing. She had normal lab results she is positive blood type and was GBS positive otherwise labs unremarkable Evaluation Evaluation Baseline heart rate: 140 Variability: Moderate (11-25) monitor accelerations: Uniform monitor decelerations: Variable Contraction Frequency (minutes): 3 Uterine Contraction Intensity: Moderate Category of Tracing: Reactive Status: Category l Cervical dilation (cm): 7 station: -1 Laboratory results: Laboratory Tests 12/02/20 12/02/20 07:45 07:45 WBC 11.6 H RBC 3.96 L Hgb 11.5 L Hct 34.1 L MCV 86.1 MCH 28.9 MCHC 33.6 RDW 13.7 Plt Count 40 L Neut % (Auto) 76.8 H Lymph % (Auto) 18.4 L Johnson % (Auto) 3.7 Eos % (Auto) 0.5 L Baso % (Auto) 0.6 Neut # (Auto) 8900 H Lymph # (Auto) 2100 Johnson # (Auto) 400 Eos # (Auto) 100 Baso # (Auto) 100 SARS-CoV-2 (PCR) Negative Comments: AROM with clear fluid PFSH Social History Smoking Status: Former smoker Meds Home Medications and Allergies Home Medications Medication Instructions Recorded Confirmed Type Classic 1 tab PO DAILY 12/02/19 12/02/19 History docusate sodium [Colace] 100 mg PO BID #60 cap 12/04/19 Rx ibuprofen 600 mg PO Q6HR PRN #90 tab 12/04/19 Rx Allergies Allergy/AdvReac Type Severity Reaction Status Date / Time No Known Drug Allergies Allergy Verified 08/23/18 13:55 Review of Systems Review of Systems ROS: Yes All systems reviewed with the patient and are negative except as otherwise documented Exam Vital Signs (past 8 hours): Alert female no acute distress. Abdomen gravid nontender. Lungs clear. Heart regular rate and rhythm extremities normal. Patient comfortable but Objective Labs Result Diagrams: 12/02/20 07:45 Labs: Laboratory Results - last 24 hr 12/02/20 12/02/20 07:45 07:45 WBC 11.6 H RBC 3.96 L Hgb 11.5 L Hct 34.1 L MCV 86.1 MCH 28.9 MCHC 33.6 RDW 13.7 Plt Count 40 L Neut % (Auto) 76.8 H Lymph % (Auto) 18.4 L Johnson % (Auto) 3.7 Eos % (Auto) 0.5 L Baso % (Auto) 0.6 Neut # (Auto) 8900 H Lymph # (Auto) 2100 Johnson # (Auto) 400 Eos # (Auto) 100 Baso # (Auto) 100 SARS-CoV-2 (PCR) Negative Assessment and Plan Assessment and Plan Assessment and Plan narrative: Forty week intrauterine with active labor. AROM with clear fluid although minimal fluid. GBS positive so antibiotics have already been started. Pitocin will be added and epidural hyacinth ent's request. Prepare for vaginal delivery.
[2020-12-02] MEDS: OXYTOCIN PREMIX 30 UNIT/500 ML PLAST..BAG IV (09:15)
[2020-12-02 09:20] LABS: Add Manual Diff / Slide Review NO; Basophils Absolute Auto 100 /uL (0-100); Basophils Percent Auto 0.6 % (0-2); Eosinophils Absolute Auto 100 /uL (0-450); Eosinophils Percent Auto 0.4 % (2-4); Hematocrit 35.2 % (36-46); Hemoglobin 11.8 g/dL (12.0-16.0); Lymphocytes Absolute Auto 2100 /uL (1100-4500); Lymphocytes Percent Auto 10.8 % (25-40); Mean Corpuscular HGB Conc 33.4 % (30-36); Mean Corpuscular Hemoglobin 28.4 PG (26-34); Mean Corpuscular Volume 84.9 fL (80-100); Monocytes Absolute Auto 700 /uL (0-900); Monocytes Percent Auto 3.9 % (3-14); Neutrophils Absolute Auto 16000 /uL (1500-7000); Neutrophils Percent Auto 84.3 % (50-75); Platelet Count 251 X10^3/uL (150-400); Red Blood Cell Count 4.15 X10^6/uL (4.0-5.2); Red Cell Distribution Width 13.9 % (11.6-14.8)
[2020-12-02 10:16] VITALS: BP 120/60
--- NOTE | 2020-12-02 10:46 | PM.AN.REGBLK ---
Regional Block Pre-procedure Procedure: Continuous Lumbar Epidural for L&D Attending OB provider: Max Peres PM/JESIKA narrative: term labor, no complications Hx: No personal or family history of anesthesia problems. ASA Class: II Labs: Hct 35.2 % (36-46) L 12/02/20 09:11 Plt Count 251 X10^3/uL (150-400) 12/02/20 09:11 Medications: Current Medications Generic Name Dose Route Start Last Admin Trade Name Freq PRN Reason Stop Dose Admin Diphenhydramine HCl 25 mg 12/02/20 09:16 Diphenhydramine 50 Mg/Ml Vial IV Q10M PRN Pruritis Fentanyl 100 mcg 12/02/20 07:52 Fentanyl 100 Mcg/2 Ml Inj IV Q1H PRN Pain, Severe (7-10) Lactated Ringer's 1,000 mls @ 100 mls/hr 12/02/20 08:00 12/02/20 08:00 Lactated Ringers IV 100 mls/hr CONT RADHA Administration Penicillin G Potassium 3,000,000 unit in 50 mls @ 100 mls/hr 12/02/20 12:00 Penicillin G Potassium IV Q4H RADHA Oxytocin/Lactated Ringer's 30 unit in 500 mls @ 3 mls/hr 12/02/20 08:00 12/02/20 09:15 Oxytocin Premix IV 3 milliunit/min TITRATE RADHA 3 mls/hr Administration Protocol 3 MILLIUNIT/MIN FENT 2MCG/ML BUPIV 0.125% EPI 200 mcg in 100 mls @ 6 mls/hr 12/02/20 09:30 Fentanyl/Bupiv/Ns 2mcg/Ml - 0.125% EPIDURAL CONT RADHA Metoclopramide HCl 10 mg 12/02/20 07:52 Metoclopramide 10 Mg/2 Ml Inj IV NOW PRN Nausea And Vomiting Allergies: Allergies Allergy/AdvReac Type Severity Reaction Status Date / Time No Known Drug Allergies Allergy Verified 08/23/18 13:55 Procedure Insertion date: 12/02/20 Insertion time: 09:50 Prep/Local: betadine x3 Interspace: L3-4 Patient position: sitting Needle: 18 gauge Metabolomic Diagnosticstead (CSE: 27g Pencan through Hustead, clear CSF, 1mL 0.25% bupiv) Loss of resistance with: saline PRAMOD at (cm): 6 Catheter placed at SKIN (cm): 11 Catheter in SPACE (cm): 6 Insertion: No CSF, No Blood, No Paresthesia with insertion, No Paresthesia with injection and No Test dose reaction Initial Medications TEST DOSE time: 09:49 TEST DOSE: 1.5% lidocaine with epinephrine 1:200k (mL): 3 BOLUS DOSE time: 09:59 BOLUS DOSE (mL): 3 BOLUS DOSE med: other (infusate) Infusion INFUSION: 0.125% bupivacaine and with fentanyl 2 mcg/mL Initial rate (mL/hr): 6 Subsequent interventions: Post-procedure Anesthesia time START: 09:46 Anesthesia time END: 10:29 Post-procedure Anesthesia Assessment: Yes CV function: HR/BP stable, Yes Resp function: RR/sat/airway adequate, Yes Post-op hydration adequate, Yes Pain control adequate, Yes Mental status appropriate and No Anesthesia complications
--- NOTE | 2020-12-02 11:01 | PM.OBPRVD ---
Labor & Delivery Delivery date: 12/02/20 Intrapartal Events: None Cervical ripening method: none Induction method: AROM Delivery augmentation: pitocin Delivery monitor: external FHT L&D Laceration Description: Periurethral - 1st Degree Estimated blood loss (mL): 150 Anesthesia Type: Epidural Complications: none Narrative: Mom and presented to Labor and delivery for induction after having been laboring all night. She was seen yesterday and was at 3 cm and presented at 7. No history of rupture. Patient had not slept in had an uncomfortable night but otherwise was doing well. heart monitor originally was category 1 with no significant changes. Consent had been previously sign. AROM was done this morning with clear fluid although not much. We then began having trouble monitoring baby which was interesting is considering minimal fluid change. We then attempted scalp electrode which seemed to be placed easily without complications but never really recorded well. Was removed. heart monitor was just adjusted in seem to be better. And remains stable. Pitocin was started epidural was placed and shortly thereafter mother was complete. Second-stage was then undertaken quickly with only 2 pushes. Child delivered OA over small right-sided periurethral first-degree tear. Double nuchal cord which was pretty loose was then noted after head was delivered and reduced on perineum. Child in delivered easily. Cord was then cut by dad on abdomen after being clamped. Cord bloods were obtained. Placenta delivered spontaneous intact 3 vessels. Pitocin was then run in after delivery of the placenta. EBL was 150 cc. Mother and infant were in stable condition. No resuscitation was required. No significant bleeding was noted.
[2020-12-02] MEDS: IBUPROFEN 600 MG TABLET PO (12:15)
[2020-12-03] MEDS: ACETAMINOPHEN 325 MG TABLET 650 MG PO ×2 (00:26→06:42)
[2020-12-03] MEDS: IBUPROFEN 600 MG TABLET PO ×2 (00:26→06:43)
[2020-12-03 06:55] LABS: Hematocrit 32.8 % (36-46); Hemoglobin 10.9 g/dL (12.0-16.0)
[2020-12-03 07:54] VITALS: BP 120/60; PULSE 80; RESP 18; TEMP 36.7
--- NOTE | 2020-12-03 08:44 | PM.OBDS.1 ---
Discharge Providers Provider Date of admission: 12/02/20 07:00 Discharge Date: 12/03/20 Primary care physician: Max Peres MD Consults: 12/03/20 10:59 Consult to Ultrasound Tech Routine Comment: Discharge provider: Max Peres MD Summary Hospital Course Date Patient Seen: 12/03/20 Time Patient Seen: 08:44 Diagnoses: Term intrauterine delivered Hospital Course: Patient presented to hospital for induction but was in active labor at 7 cm with intermittent contractions. She was GBS positive began on antibiotics. AROM is then undertaken with clear fluid. Pitocin was began. She had short course until complete. Second-stage only lasted 2 pushes. No complications. Her pain is been well controlled. She has had no bleeding. Her Krishnamurthy crit was 32. She feels as if brisk feeding is going well. She is comfortable with how things are going. She has no complaints and is requesting to go home and was discharged to home. Peripartum Data Infant Delivery Method: Natural Vaginal Laceration Description: Periurethral - 1st Degree Episiotomy description: None Procedures: Normal vaginal delivery complications: none Status at Discharge Cognitive/behavioral status at discharge: oriented Functional status at discharge: independent ambulation Overall status at discharge: patient is progressing back to baseline Time Spent with Patient Time attestation: Total time spent providing and/or coordinating discharge services: Objective Labs Result Diagrams: 12/03/20 06:36 Labs: Laboratory Results - last 24 hr 12/02/20 12/02/20 12/03/20 07:45 09:11 06:36 WBC 19.0 H D RBC 4.15 Hgb 11.8 L 10.9 L Hct 35.2 L 32.8 L MCV 84.9 MCH 28.4 MCHC 33.4 RDW 13.9 Plt Count 251 Neut % (Auto) 84.3 H Lymph % (Auto) 10.8 L [place] % (Auto) 3.9 Eos % (Auto) 0.4 L Baso % (Auto) 0.6 Neut # (Auto) 82211 H Lymph # (Auto) 2100 [place] # (Auto) 700 Eos # (Auto) 100 Baso # (Auto) 100 Blood Type A Positive Antibody Screen Negative Exam Narrative Exam Narrative: Alert smiling female much more rested in no acute distress. Lungs are clear. Heart regular rate and rhythm. Abdomen is gravid fundal height is at umbilicus. Extremities without cyanosis clubbing edema no calf tenderness. Neurologic exam is normal Discharge Plan Discharge Plan Patient Disposition: Home Discharge orders & Medications Prescriptions: Continued Classic 28 mg iron- 800 mcg Tablet 1 tab PO DAILY RF: 0 ibuprofen 600 mg Tablet 600 mg PO Q6HR PRN (Reason: Pain, Mild (1-3)) Qty: 90 RF: 1 docusate sodium [Colace] 100 mg capsule 100 mg PO BID Qty: 60 RF: 0 Follow up/Referrals: Max Peres MD [Primary Care Provider] - 6 Weeks (please call for appointment) Diet/Activity/Treatments Diet: Diet as Tolerated Activity: no pelvic activity Skin/Wound/Dressing Care Report to your healthcare provider any signs of infection, such as:: chills, fever, night sweats, increased pain, unusual drainage and unusual redness Discharge Data Primary Care Provider: Max Peres
== END 2020-12-03 13:45 | disposition home or self-care (01) | DRG 560 ==
PROVIDERS: Anesthesiology; Admitting Provider Family Medicine; PCP Family Medicine; Referring Provider Family Medicine; Visit Provider Family Medicine
DX: O99.824 Streptococcus B carrier state complicating childbirth (principal); Z3A.40 40 weeks gestation of pregnancy; Z37.0 Single live birth; O71.82 Other specified trauma to perineum and vulva; Z20.822 Contact with and (suspected) exposure to COVID-19
CPT/HCPCS: 01967; 36415; 59050; 85014; 85018; 85025; 86850; 86900; 86901; 87635; C9803; G0379; J2540; J2590

== ENCOUNTER 2024-03-13 16:30 | Emergency (ER) | payer OTHER, MEDICAID, SELFPAY ==
[2024-03-13 16:37] VITALS: BP 120/56; PULSE 82; RESP 18; TEMP 37.2; O2SAT 98; BMI 30.7
--- NOTE | 2024-03-13 17:06 | ED.ANXIETY ---
HPI - Anxiety <Bhavna Urbina PA-C - Last Filed: 03/13/24 20:02> General Chief Complaint: Anxiety Stated Complaint: rpaid heartbeat chest px, after taking flonaise Time Seen by Provider: 03/13/24 16:44 Source: patient Mode of arrival: Ambulatory History of Present Illness HPI narrative: Is a 28-year-old female who presents with concern for ongoing intermittent anxiety issues for the last 2 months and hoping for medication to help this. Patient states her anxiety crept up a few months ago when her mother was in the hospital with pneumonia, and has had some increased stressors over the past few months that seemed to be triggering her anxiety, she does work on breathing exercises and focusing trying to think about other things when her anxiety creeps up but has had some panic attacks in the last few months. She has seen her PCP for this recently as of last week and believe that she was going to receive some medication to help with anxiety but states that the prescription was never sent. She is here today hoping to have something to help with baseline anxiety and some recommendations. She endorsed that she was having very fleeting midsternal sharp chest discomfort associated with her anxiety symptoms in the past few weeks but has not had any chest pain recently. She denies any thoughts of self-harm or harming others and has no other complaints or concerns. Related Data Home Medications Medication Instructions Recorded Confirmed vits [id number]-[id number] fum 1 tab PO DAILY 12/02/19 02/25/24 28 mg iron-folic acid 800 mcg tablet (Classic ) Previous Rx's Medication Instructions Recorded docusate sodium 100 mg capsule 100 mg PO BID #60 caps 12/04/19 (Colace) ibuprofen 600 mg tablet 600 mg PO Q6HR PRN Pain, Mild 12/04/19 (1-3) #90 tabs meclizine 25 mg tablet 25 mg PO BID PRN dizziness #20 tabs 02/25/24 hydroxyzine HCl 25 mg tablet 25 mg PO QID PRN anxiety 16 days 03/13/24 #50 tabs Allergies Allergy/AdvReac Type Severity Reaction Status Date / Time No Known Drug Allergies Allergy Verified 02/25/24 11:46 Review of Systems <Bhavna Urbina PA-C - Last Filed: 03/13/24 20:02> Review of Systems Narrative: See HPI Patient History <Bhavna Urbina PA-C - Last Filed: 03/13/24 20:02> Social History Smoking Status: Former smoker Smoking Status: Former smoker alcohol intake frequency: other Substance Use Type: marijuana Exam <TANYA Gonzalez Last Filed: 03/13/24 20:02> Narrative Exam Narrative: GENERAL: [28] year old patient appears stated age. Well-developed patient, in mild distress; speaking in clear full sentences relaxed appearing. HEAD: Atraumatic. Normocephalic. EYES: Pupils equal round and reactive. Extraocular motions intact. No scleral icterus. No injection or drainage. ENT: Nose without bleeding, purulent drainage. Airway patent. NECK: Trachea midline. Non tender CARDIOVASCULAR: Regular rate and rhythm without murmurs, gallops, or rubs. RESPIRATORY: Clear to auscultation. Breath sounds equal bilaterally. No wheezes, rales, or rhonchi. GASTROINTESTINAL: Abdomen nondistended. EXTREMITIES: Moving all extremities, normal gait BACK: Nontender without deformity or crepitance. No flank tenderness. NEURO: AOx3. SKIN: No rash or erythema of visible areas Initial Vital Signs Initial Vital Signs: Vital Signs Temperature 98.9 F 03/13/24 16:37 Pulse Rate 82 03/13/24 16:37 Respiratory Rate 18 03/13/24 16:37 Blood Pressure 120/56 L 03/13/24 16:37 Pulse Oximetry 98 03/13/24 16:37 Oxygen Delivery Method Room Air 03/13/24 16:37 <Ponce James DO - Last Filed: 03/19/24 18:00> Initial Vital Signs Initial Vital Signs: Vital Signs Temperature 98.9 F 03/13/24 16:37 Pulse Rate 82 03/13/24 16:37 Respiratory Rate 18 03/13/24 16:37 Blood Pressure 120/56 L 03/13/24 16:37 Pulse Oximetry 98 03/13/24 16:37 Oxygen Delivery Method Room Air 03/13/24 16:37 Course <Bhavna Urbina PA-C - Last Filed: 03/13/24 20:02> Orders Ordered: ED Orders 03/13/24 16:44 EKG-12 Lead Stat Vital Signs Vital signs: Vital Signs - 8 hr 03/13/24 16:37 03/13/24 17:52 Temperature 98.9 F Pulse Rate 82 60 Respiratory Rate 18 Blood Pressure 120/56 L 113/56 L Pulse Oximetry 98 98 Oxygen Delivery Method Room Air Room Air <Ponce ScruggsDO dominick - Last Filed: 03/19/24 18:00> Orders Ordered: ED Orders 03/13/24 16:44 EKG-12 Lead Stat Vital Signs Vital signs: Vital Signs - 8 hr 03/13/24 16:37 03/13/24 17:52 Temperature 98.9 F Pulse Rate 82 60 Respiratory Rate 18 Blood Pressure 120/56 L 113/56 L Pulse Oximetry 98 98 Oxygen Delivery Method Room Air Room Air MDM - Anxiety <Bhavna Urbina PA-C - Last Filed: 03/13/24 20:02> Differential Diagnosis Differential diagnosis: Likely acute anxiety and other (Chronic anxiety, medication question) Medical Records Attestation: I reviewed the patient's medical records. ECG Data Interpretation: NSR with sinus arrhythmia, no ectopy or ST changes noted, QTC 438 intervals within normal limits MDM Narrative Medical decision making narrative: This is a well-appearing 28-year-old woman presenting with concern for wanting some help with anxiety symptoms that she has been having over the last few months, hoping for prescription for this. Discussed this with the patient and will prescribe hydroxyzine, for 2 week course as needed, advised her regarding the use of this and potential sedating qualities, encouraged her to consider seeing a mental health provider, seek counseling to help with her symptoms as well. She will follow up again closely with her PCP. She has no thoughts of self-harm or harming others and is in no acute distress without anxiety during her visit today in the ER. She has no other concerns and return precautions are provided, follow-up plan discussed, all questions answered. Discharge Plan Departure Patient Disposition: Home Clinical Impression: Anxiety Activity Restrictions/Additional Instructions: *You have been diagnosed with [anxiety] *What to do: *Please continue to take your regular medications as directed. [1 ] New medication prescriptions sent to your pharmacy: [Hydroxyzine] [ ] New medication written as a paper prescription [ ] No new medications given *Please follow up with your primary care provider in 2-3 days, call for an appointment. Let them know you were seen in the Emergency Department and that we ask that you be seen in follow up. We will electronically transmit a record of today's note if your PCP is in our system. You came in today with concern for increasing anxiety in the last 2 months and hoping for some medicine to help with this. We did do an EKG as you described previously having some episodes where it felt like her heart was racing and some mild intermittent sharp pains in your chest which you were previously told were likely related to anxiety. I agree based on discussing ear symptoms and recent life events this is likely the case, as we discussed I encourage you to consider seeing a mental health provider, I am giving you a short prescription an anxiety medication that can be taken as needed or you can take it daily. Maximum dose per day would be for of the 25 mg tabs I would take this much every day unless you feel your anxiety is high or you need to. But it is fine to take 1 or 2 daily if you feel it is helping and more if you are having worsened anxiety. Do work on trying to reduce stressors in her life and focused on breathing exercises as we discussed if you feel your anxiety is getting high. I hope you feel better soon and please follow up closely with your primary care provider and consider seeing a mental health provider soon. You are not having any active chest pain or concerning symptoms related to this and we did not do labs today however we did do an EKG which looks good you do have something called a sinus arrhythmia which is quite normal this just means that the heart rate can vary a little bit when you breathe. *If you do not have a primary care provider please contact the [facility] Resource line at [phone]. They will ask some questions about your medical history and help get you set up with a doctor in the community. *Return to Emergency Department if you should have any new, worsening or concerning symptoms, such as [fever greater than 101 F, shaking chills, worsening pain, persistent vomiting or other bothersome symptoms] Prescriptions: New hydroxyzine HCl 25 mg tablet 25 mg PO QID PRN (Reason: anxiety) 16 Days Qty: 50 0RF No Action meclizine 25 mg tablet 25 mg PO BID PRN (Reason: dizziness) Qty: 20 0RF Classic 28 mg iron- 800 mcg Tablet 1 tab PO DAILY ibuprofen 600 mg Tablet 600 mg PO Q6HR PRN (Reason: Pain, Mild (1-3)) Qty: 90 1RF docusate sodium [Colace] 100 mg capsule 100 mg PO BID Qty: 60 0RF Referrals: Max Peres MD [Primary Care Provider] - Stand Alone Forms: Patient Portal/API ED Sign-out <Ponce James DO - Last Filed: 03/19/24 18:00> Cosign ED Attending Cosignature Attestation: Dr James Co-Sign Statement: I was available for consultation during this patient's emergency department visit. This chart is signed by myself for administrative purposes only. I did not have direct contact with this patient during this visit. They were seen independently by the APC.
[2024-03-13 17:52] VITALS: BP 113/56; PULSE 60; O2SAT 98
== END 2024-03-13 17:52 | disposition home or self-care (01) ==
PROVIDERS: Emergency Provider Student in an Organized Health Care Education/Training Program; PCP Family Medicine
DX: F41.9 Anxiety disorder, unspecified (principal); I49.8 Other specified cardiac arrhythmias
CPT/HCPCS: 93005; 93010; 99281; 99283

== ENCOUNTER 2024-04-18 14:54 | Emergency (ER) | payer OTHER, MEDICAID, SELFPAY ==
[2024-04-18 15:00] VITALS: BP 118/75; PULSE 91; RESP 16; TEMP 36.6; O2SAT 98; BMI 29.0
--- NOTE | 2024-04-18 15:11 | EKG_ITS ---
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
--- NOTE | 2024-04-18 16:00 | DI.RAD.S_ITS ---
PROCEDURE: XR CHEST 1V INDICATIONS: chest pain TECHNIQUE: One view of the chest was acquired. COMPARISON: None. FINDINGS: Surgical changes and devices: None. Lungs and pleura: Lungs are clear. No pleural effusions or pneumothorax. Mediastinum: Mediastinal contours appear normal. Heart size is normal. Bones and chest wall: No suspicious bony lesions. Overlying soft tissues appear unremarkable. IMPRESSION: No acute cardiopulmonary abnormality is seen. Dictated by: Lexi Lemons M.D. on 04/18/2024 at 16:35 Approved by: Lexi Lemons M.D. on 04/18/2024 at 16:36
[2024-04-18 16:46] LABS: INR 1.1 (0.9-1.3)
[2024-04-18 16:49] LABS: PTT Partial Thromboplastin Tim 36 SECONDS (25.1-36.5)
[2024-04-18 16:50] LABS: Alanine Aminotransferase 14 IU/L (<35); Albumin 4.8 g/dL (3.5-5.0); Albumin Globulin Ratio 1.5 (1.0-2.8); Alkaline Phosphatase 51 U/L (38-126); Aspartate Aminotransferase 24 IU/L (14-36); BUN Creatinine Ratio 15.9 (6-22); Bilirubin Total 0.7 mg/dL (0.2-1.3); Blood Urea Nitrogen 13 mg/dL (7-17); Calcium 9.3 mg/dL (8.4-10.2); Carbon Dioxide 27 mmol/L (22-32); Chloride 106 mmol/L (98-107); Creatine Kinase 195 U/L (30-135); Estimated Glomerular Filt Rate > 60 mL/min (>60); Globulin 3.1 g/dL (1.7-4.1); Glucose 84 mg/dL (70-100); HEMOLYSIS < 15 (0-50); Lipase 65 U/L (23-300); Magnesium 2.4 mg/dL (1.6-2.3); Potassium 3.9 mmol/L (3.4-5.1); Sodium 140 mmol/L (137-145); Total Protein 7.9 g/dL (6.3-8.2)
[2024-04-18 17:02] LABS: Troponin I < 0.012 ng/mL (0.01-0.034)
[2024-04-18 17:12] LABS: Add Manual Diff / Slide Review NO; Basophils Absolute Auto 0 /uL (0-100); Basophils Percent Auto 0.4 % (0-2); Eosinophils Absolute Auto 300 /uL (0-450); Eosinophils Percent Auto 3.4 % (2-4); Hematocrit 40.4 % (36-46); Hemoglobin 13.7 g/dL (12.0-16.0); Lymphocytes Absolute Auto 2100 /uL (1100-4500); Mean Corpuscular HGB Conc 33.8 % (30-36); Mean Corpuscular Volume 88.7 fL (80-100); Monocytes Absolute Auto 400 /uL (0-900); Monocytes Percent Auto 4.5 % (3-14); Neutrophils Absolute Auto 6600 /uL (1500-7000); Neutrophils Percent Auto 69.7 % (50-75); Platelet Count 223 X10^3/uL (150-400); Red Blood Cell Count 4.56 X10^6/uL (4.0-5.2); Red Cell Distribution Width 12.6 % (11.6-14.8); White Blood Cell Count 9.4 X10^3/uL (4.5-11.0)
[2024-04-18 17:22] VITALS: BP 122/72; PULSE 61; RESP 17; TEMP 36.7; O2SAT 100
--- NOTE | 2024-04-18 18:44 | PC.NURSE ---
Pt reports transient, aching chest pain which lasts a few seconds. Pain has been in either her left chest and radiating to left back, or right chest radiating to right back. SOB, palpations, near syncope present with transient pain. She denies cardiac history prior to past 30 days.
--- NOTE | 2024-04-18 18:56 | EKG_ITS ---
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
[2024-04-18 19:34] LABS: Troponin I < 0.012 ng/mL (0.01-0.034)
--- NOTE | 2024-04-18 20:35 | ED.CHESTPAIN ---
HPI - Chest Pain General Chief Complaint: Chest Pain Stated Complaint: chest pain, sob Time Seen by Provider: 04/18/24 20:34 Source: patient Mode of arrival: Ambulatory History of Present Illness HPI narrative: 28-year-old female with history of seasonal allergies who presents with a month of substernal chest pain that radiates to her back. Patient states she presents today because started having some increased shortness of breath with symptoms. States it lasts a couple seconds then we will often improve. Can happen at any time does not really seem to exacerbate in the particular but does somewhat seem worse when she is lying down flat. Patient denies any fevers or chills, no cold cough or congestion. She has had some mild nausea but no vomiting. No issues with bowel movements or urination. No swelling in extremities. She was started on omeprazole about a month ago for her symptoms by her primary care. Patient states no daily medications besides her allergy medication omeprazole. She has not on any estrogen but does have an IUD she does not remember what kind. No prior surgeries. No known drug allergies. Vapes tobacco, no regular alcohol, denies any recreational or IV drugs. No long distance travel. No family history of cardiac or pulmonary embolic history or vascular history. Related Data Home Medications Medication Instructions Recorded Confirmed vits no.126-ferrous fum 1 tab PO DAILY 12/02/19 02/25/24 28 mg iron-folic acid 800 mcg tablet (Classic ) Previous Rx's Medication Instructions Recorded docusate sodium 100 mg capsule 100 mg PO BID #60 caps 12/04/19 (Colace) ibuprofen 600 mg tablet 600 mg PO Q6HR PRN Pain, Mild 12/04/19 (1-3) #90 tabs meclizine 25 mg tablet 25 mg PO BID PRN dizziness #20 tabs 02/25/24 Allergies Allergy/AdvReac Type Severity Reaction Status Date / Time No Known Drug Allergies Allergy Verified 04/18/24 15:02 Review of Systems Review of Systems ROS Unobtainable: All systems reviewed & are unremarkable except as noted in HPI and below Patient History Social History Smoking Status: Current every day smoker Smoking Status: Current every day smoker alcohol intake frequency: other Substance Use Type: marijuana Exam Narrative Exam Narrative: GENERAL: Alert and oriented x three, well-appearing female in mild distress. HEENT: Head normocephalic, atraumatic, EOMI, pupils reactive, face symmetric, moist mucous membranes NECK: Supple, full range of motion CARDIOVASCULAR: Regular rate and rhythm without murmurs, rubs or gallops. No reproducible pain. No JVD. No edema bilateral lower extremities. RESPIRATORY: Breath sounds equal bilaterally, no wheezes rales or rhonchi. ABDOMEN: Soft, nontender. Normoactive bowel sounds all 4 quadrants. No guarding or rebound, rigidity, no mass : No CVA tenderness EXTREMITIES: Normal range of motion, no clubbing or edema. Neurovascularly intact NEUROLOGICAL: Cranial nerves II through XII grossly intact. Moving all extremities SKIN: Warm, dry, no petechiae, no rashes or lesions. Initial Vital Signs Initial Vital Signs: Vital Signs Temperature 97.9 F 04/18/24 15:00 Pulse Rate 91 H 04/18/24 15:00 Respiratory Rate 16 04/18/24 15:00 Blood Pressure 118/75 04/18/24 15:00 Pulse Oximetry 98 04/18/24 15:00 Oxygen Delivery Method Room Air 04/18/24 15:00 Scores HEART Score Heart Score history: Slightly Suspicious Heart Score EKG: Normal Heart Score Age: < 45 years old Heart Score risk factors: 1-2 risk factors (vapes tobacco) Heart Score troponin: < or = to normal limit Heart Score Total: 1 PERC Score Age greater than or equal to 50 years: No Heart rate greater than or equal to 100 bpm: No Room Air O2 Sat less than 95%: No Unilateral leg swelling: No Recent trauma or surgery: No Hemoptysis: No Prior PE or DVT: No Hormone Use: No Total PERC Score: 0 Course Orders Ordered: ED Orders 04/18/24 15:03 EKG-12 Lead Stat 04/18/24 16:00 XR chest 1V Stat 04/18/24 16:18 Complete Blood Count AUTO DIFF Stat Comprehensive Metabolic Panel Stat Lipase Stat Magnesium Stat PTT Partial Thromboplastin Harshil Stat Prothrombin Time INR Stat Troponin & CK Cardiac Panel Stat 04/18/24 18:48 EKG-12 Lead Stat 04/18/24 19:02 Troponin I Stat 04/18/24 20:44 D Dimer Stat Vital Signs Vital signs: Vital Signs - 8 hr 04/18/24 15:00 04/18/24 17:22 Temperature 97.9 F 98.0 F Pulse Rate 91 H 61 Respiratory Rate 16 17 Blood Pressure 118/75 122/72 Pulse Oximetry 98 100 Oxygen Delivery Method Room Air Room Air MDM - Chest Pain Lab Data 04/18/24 16:18 04/18/24 16:18 Labs: Lab Results 04/18/24 04/18/24 Range/Units 16:18 19:02 WBC 9.4 (4.5-11.0) X10^3/uL RBC 4.56 (4.0-5.2) X10^6/uL Hgb 13.7 (12.0-16.0) g/dL Hct 40.4 (36-46) % MCV 88.7 (80-100) fL MCH 30.0 (26-34) PG MCHC 33.8 (30-36) % RDW 12.6 (11.6-14.8) % Plt Count 223 (150-400) X10^3/uL Neut % (Auto) 69.7 (50-75) % Lymph % (Auto) 22.0 L (25-40) % [place] % (Auto) 4.5 (3-14) % Eos % (Auto) 3.4 (2-4) % Baso % (Auto) 0.4 (0-2) % Neut # (Auto) 6600 (4974-8286) /uL Lymph # (Auto) 2100 (5933-9294) /uL [place] # (Auto) 400 (0-900) /uL Eos # (Auto) 300 (0-450) /uL Baso # (Auto) 0 (0-100) /uL PT 13.0 H (9.4-12.5) SECONDS INR 1.1 (0.9-1.3) APTT 36 (25.1-36.5) SECONDS D-Dimer 425 (<500) ng/ml Sodium 140 (137-145) mmol/L Potassium 3.9 (3.4-5.1) mmol/L Chloride 106 (98-107) mmol/L Carbon Dioxide 27 (22-32) mmol/L BUN 13 (7-17) mg/dL Creatinine 0.82 (0.52-1.04) mg/dL Estimated GFR > 60 (>60) mL/min BUN/Creatinine Ratio 15.9 (6-22) Glucose 84 (70-100) mg/dL Calcium 9.3 (8.4-10.2) mg/dL Magnesium 2.4 H (1.6-2.3) mg/dL Total Bilirubin 0.7 (0.2-1.3) mg/dL AST 24 (14-36) IU/L ALT 14 (<35) IU/L Alkaline Phosphatase 51 (38-126) U/L Total Creatine Kinase 195 H (30-135) U/L Troponin I < 0.012 < 0.012 (0.01-0.034) ng/mL Total Protein 7.9 (6.3-8.2) g/dL Albumin 4.8 (3.5-5.0) g/dL Globulin 3.1 (1.7-4.1) g/dL Albumin/Globulin Ratio 1.5 (1.0-2.8) Lipase 65 (23-300) U/L Imaging Data Chest x-ray: Radiologist's Impression: Yomaira Hernandez??28??F??1995 ? Allergy/Adv: No Known Drug Allergies (More??) Close Chest X-Ray (Signed) VestaLxei - 04/18/24 Ultrasound (Signed) Cb Arenas - 07/17/20 Ultrasound (Signed) Cameron Gandhi - 04/28/20 Ultrasound (Signed) Lorena Calhoun - 07/09/19 Ultrasound (Signed) Camron Palmer - 04/16/19 Ultrasound (Signed) Wilian Padron - 08/23/18 [facility]?[address] [address] XRay Report Signed Patient: Yomaira Hernandez MR#: [id number] : 1995 Acct:[id number] Age/Sex: 28 / F Date of Service: 04/18/24 Loc: ED Accession Number: [id number] Procedure: XR chest 1V Ordering Provider: Mary Owens D.O. PROCEDURE: XR CHEST 1V INDICATIONS: chest pain TECHNIQUE: One view of the chest was acquired. COMPARISON: None. FINDINGS: Surgical changes and devices: None. Lungs and pleura: Lungs are clear. No pleural effusions or pneumothorax. Mediastinum: Mediastinal contours appear normal. Heart size is normal. Bones and chest wall: No suspicious bony lesions. Overlying soft tissues appear unremarkable. IMPRESSION: No acute cardiopulmonary abnormality is seen. Dictated by: Lexi Lemons M.D. on 04/18/2024 at 16:35 Approved by: Lexi Lemons M.D. on 04/18/2024 at 16:36 ? ? ECG Data Attestation: I personally reviewed and interpreted this ECG as follows: Interpretation: Sinus rhythm sinus arrhythmia rate of 75 [place] 166 QRS 82 QTC 455, no acute ST elevation or depression noted. Repeat EKG shows sinus rhythm rate of 63 [place] 166 QRS 84 QTC 440. Some motion artifact in lead 2 and 3 but otherwise no acute changes appreciated. MDM Narrative Medical decision making narrative: CBC shows lymphocytes low at 22%, otherwise normal white count, hemoglobin and platelets. INR is 1.1, electrolytes are normal renal functions normal normal BUN, Mag was 2.4, glucose is 84, LFTs including T bilirubin are normal, lipase is normal at 65. Total CK was 195, troponin is less than 0.012 and repeat troponin is less than 0.012. Chest x-ray shows no acute change. Acute EKG changes appreciated. 28-year-old female chest pain for a month with some new shortness of breath. Vitals are overall appropriate lab work is overall been appropriate suffers slightly high magnesium. Patient was started on omeprazole month ago for possible reflux. D-dimer was included and is negative. Discharge Plan Departure Patient Disposition: Home Clinical Impression: Atypical chest pain Instructions: DI for Atypical Chest Pain Activity Restrictions/Additional Instructions: Follow-up with your physician for recheck. Please call to set up an appointment. You can continue with your omeprazole can take up to 40 mg daily. Please return for new or worsening symptoms increasing pain, shortness of breath, lightheadedness or passing out, persistent nausea or vomiting, passing out, any other new swelling of your extremities or other new or concerning changes. Prescriptions: No Action meclizine 25 mg tablet 25 mg PO BID PRN (Reason: dizziness) Qty: 20 0RF Classic 28 mg iron- 800 mcg Tablet 1 tab PO DAILY ibuprofen 600 mg Tablet 600 mg PO Q6HR PRN (Reason: Pain, Mild (1-3)) Qty: 90 1RF docusate sodium [Colace] 100 mg capsule 100 mg PO BID Qty: 60 0RF Referrals: Larisa,Max P, MD [Primary Care Provider] - Stand Alone Forms: Patient Portal/API
[2024-04-18 20:54] LABS: D Dimer 425 ng/ml (<500)
[2024-04-18 21:25] VITALS: BP 135/78; PULSE 65; RESP 15; TEMP 36.4; O2SAT 99
== END 2024-04-18 21:27 | disposition home or self-care (01) ==
PROVIDERS: Emergency Medicine; Emergency Provider Emergency Medicine; PCP Family Medicine
DX: R07.89 Other chest pain (principal); R79.89 Other specified abnormal findings of blood chemistry
CPT/HCPCS: 36415; 71045; 80053; 82550; 83690; 83735; 84484; 85025; 85379; 85610; 85730; 93005; 99281; 99284

== ENCOUNTER 2024-09-16 09:51 | Emergency (ER) | payer OTHER, MEDICAID, SELFPAY ==
[2024-09-16 09:56] VITALS: BP 106/68; PULSE 89; RESP 18; TEMP 36.7; O2SAT 98; BMI 24.2
[2024-09-16 11:06] LABS: Adenovirus Not Detected (Not Detect); B. parapertussis Not Detected (Not Detecte); Bordetella pertussis Not Detected (Not Detect); Chlamydophila pneumoniae Not Detected (Not Detect); Coronavirus 229E Not Detected (Not Detect); Coronavirus HKU1 Not Detected (Not Detect); Coronavirus NL 63 Not Detected (Not Detect); Coronavirus OC43 Not Detected (Not Detect); Human Metapneumovirus Not Detected (Not Detect); Human Rhinovirus/Enterovirus Detected (Not Detect); Influenza A Not Detected (Not Detect); Influenza B Not Detected (Not Detect); Mycoplasma pneumoniae Not Detected (Not Detect); Parainfluenza Virus 1 Not Detected (Not Detect); Parainfluenza Virus 2 Not Detected (Not Detect); Parainfluenza Virus 3 Not Detected (Not Detect); Parainfluenza Virus 4 Not Detected (Not Detect); Respiratory Syncytial Virus Not Detected (Not Detect); SARS- CoV-2 Not Detected (Not Detecte)
--- NOTE | 2024-09-16 11:41 | PC.NURSE ---
Educated patient and father of children present, who are also patients with same symptoms, in the ED that the benzonatate prescription should not be given to children Patient and significant other acknowledged teaching.
--- NOTE | 2024-09-16 14:12 | ED_ITS ---
HPI - URI/Sore Throat <Andrei Cabello PA-C - Last Filed: 09/16/24 14:26> General Chief Complaint: Upper Respiratory Symptoms Stated Complaint: cough Time Seen by Provider: 09/16/24 11:12 History of Present Illness HPI Narrative: 29-year-old female presents to the ED with 1 month of upper respiratory symptoms. Patient states that she did have some fever more than a week ago, however is still left with a residual cough that is bothersome. No chest pain, shortness of breath, abdominal pain, nausea, vomiting, diarrhea. Patient has been taking NyQuil and DayQuil with minimal relief. Related Data Home Medications Medication Instructions Recorded Confirmed vits no.126-ferrous fum 1 tab PO DAILY 12/02/19 02/25/24 28 mg iron-folic acid 800 mcg tablet (Classic ) Previous Rx's Medication Instructions Recorded docusate sodium 100 mg capsule 100 mg PO BID #60 caps 12/04/19 (Colace) ibuprofen 600 mg tablet 600 mg PO Q6HR PRN Pain, Mild 12/04/19 (1-3) #90 tabs meclizine 25 mg tablet 25 mg PO BID PRN dizziness #20 tabs 02/25/24 benzonatate 200 mg capsule 200 mg PO TID PRN cough #30 caps 09/16/24 Allergies Allergy/AdvReac Type Severity Reaction Status Date / Time No Known Drug Allergies Allergy Verified 04/18/24 15:02 Review of Systems <Andrei Cabello PA-C - Last Filed: 09/16/24 14:26> Constitutional Constitutional: Denies chills, Denies fatigue, Denies fever(s), Denies frequent falls, Denies lethargy and Denies weakness Eyes Eyes: Denies change in vision, Denies eye discharge, Denies irritation and Denies loss of vision ENT Ears, Nose, Mouth, and Throat: Denies change in voice, Denies dizziness, Denies neck pain, Denies sore throat and Denies throat swelling Cardiovascular Cardiovascular: Denies chest pain, Denies irregular heart rhythm, Denies lightheadedness, Denies palpitations, Denies dyspnea, Denies dyspnea on exertion and Denies orthopnea Respiratory Respiratory: Reports cough, Denies dyspnea, Denies dyspnea on exertion and Denies wheezing Gastrointestinal Gastrointestinal: Denies abdominal pain, Denies change in bowel habits, Denies diarrhea, Denies nausea and Denies vomiting Musculoskeletal Musculoskeletal: Denies neck pain and Denies numbness Integumentary/Breasts Skin/Breast: Denies pruritus, Denies erythema, Denies rash and Denies wounds Neurologic Neurologic: Denies behavioral changes, Denies confusion, Denies dizziness, Denies frequent falls, Denies loss of vision, Denies numbness and Denies weakness Psychiatric Psychiatric: Denies anxiety, Denies behavioral changes, Denies confusion, Denies depression, Denies homicidal ideation and Denies suicidal ideation Endocrine Endocrine: Denies fatigue, Denies flushing and Denies palpitations Hematologic/Lymphatic Hematologic/Lymphatic: Denies easy bruising Allergic/Immunologic Allergic/Immunologic: Denies urticaria, Denies throat swelling and Denies wheezing Patient History <Andrei Cabello PA-C - Last Filed: 09/16/24 14:26> Social History Smoking Status: Current every day smoker Smoking Status: Current every day smoker tobacco type: cigarettes alcohol intake frequency: other Substance Use Type: marijuana Exam <Andrei Cabello PA-C - Last Filed: 09/16/24 14:26> Narrative Exam Narrative: Const General:?cooperative, healthy appearing and comfortable [facility] Head:?normal to inspection Ears:?hearing grossly normal bilaterally Nose:?external nose normal Face and sinus:?normal facial exam and sinuses nontender Mouth:?oral mucosae normal Throat:?posterior oropharynx normal Eyes General:?appearance normal, both eyes and all related structures Neck Neck:?normal visual inspection and no lymphadenopathy noted Resp Effort & Inspection:?normal respiratory effort Auscultation:?clear to auscultation bilaterally Cardio Rate:?regular rate Rhythm:?regular rhythm Neuro General:?patient alert, patient awake and patient oriented x3 Initial Vital Signs Initial Vital Signs: Vital Signs Temperature 98.1 F 09/16/24 09:56 Pulse Rate 89 09/16/24 09:56 Respiratory Rate 18 09/16/24 09:56 Blood Pressure 106/68 09/16/24 09:56 Pulse Oximetry 98 09/16/24 09:56 Oxygen Delivery Method Room Air 09/16/24 09:56 <Rosa Decker DO - Last Filed: 09/17/24 19:43> Initial Vital Signs Initial Vital Signs: Vital Signs Temperature 98.1 F 09/16/24 09:56 Pulse Rate 89 09/16/24 09:56 Respiratory Rate 18 09/16/24 09:56 Blood Pressure 106/68 09/16/24 09:56 Pulse Oximetry 98 09/16/24 09:56 Oxygen Delivery Method Room Air 09/16/24 09:56 Course <Andrei Cabello PA-C - Last Filed: 09/16/24 14:26> Orders Ordered: ED Orders 09/16/24 10:10 Respiratory Panel (Film Array) Stat Vital Signs Vital signs: Vital Signs - 8 hr 09/16/24 09:56 Temperature 98.1 F Pulse Rate 89 Respiratory Rate 18 Blood Pressure 106/68 Pulse Oximetry 98 Oxygen Delivery Method Room Air <Rosa Decker DO - Last Filed: 09/17/24 19:43> Orders Ordered: ED Orders 09/16/24 10:10 Respiratory Panel (Film Array) Stat Vital Signs Vital signs: Vital Signs - 8 hr 09/16/24 09:56 Temperature 98.1 F Pulse Rate 89 Respiratory Rate 18 Blood Pressure 106/68 Pulse Oximetry 98 Oxygen Delivery Method Room Air MDM - URI/Sore Throat <Andrei Cabello PA-C - Last Filed: 09/16/24 14:26> Lab Data Labs: Lab Results 09/16/24 Range/Units 10:10 Chlamy pneumoniae PCR Not detected (Not Detect) Adenovirus (PCR) Not detected (Not Detect) B. pertussis DNA (PCR) Not detected (Not Detect) B.parapertussis DNA PCR Not detected (Not Detecte) Coronavirus OC43 (PCR) Not detected (Not Detect) Coronavirus HKU1 (PCR) Not detected (Not Detect) Coronavirus 229E (PCR) Not detected (Not Detect) SARS-CoV-2 (PCR) Not detected (Not Detecte) Coronavirus NL63 (PCR) Not detected (Not Detect) Human Metapneumovir PCR Not detected (Not Detect) Influenza Type A (PCR) Not detected (Not Detect) Influenza Type B (PCR) Not detected (Not Detect) M. pneumoniae (PCR) Not detected (Not Detect) Parainfluenza 1 (PCR) Not detected (Not Detect) Parainfluenza 2 (PCR) Not detected (Not Detect) Parainfluenza 3 (PCR) Not detected (Not Detect) Parainfluenza 4 (PCR) Not detected (Not Detect) RSV (PCR) Not detected (Not Detect) Entero/Rhino (PCR) Detected H (Not Detect) MDM Narrative Medical decision making narrative: 29-year-old female presents to the ED with 1 month of upper respiratory symptoms. Physical exam is reassuring, heart and lungs clear to auscultation. Respiratory swab is positive for enterovirus/rhino virus. Residual cough most consistent with acute bronchitis. Prescribed Tessalon Perles. Recommend good hydration. Recommend follow-up with PCP. ED return precautions discussed with patient. Patient verbalized understanding. Medical records reviewed: Yes <Rosa Decker, - Last Filed: 09/17/24 19:43> Lab Data Labs: Lab Results 09/16/24 Range/Units 10:10 Chlamy pneumoniae PCR Not detected (Not Detect) Adenovirus (PCR) Not detected (Not Detect) B. pertussis DNA (PCR) Not detected (Not Detect) B.parapertussis DNA PCR Not detected (Not Detecte) Coronavirus OC43 (PCR) Not detected (Not Detect) Coronavirus HKU1 (PCR) Not detected (Not Detect) Coronavirus 229E (PCR) Not detected (Not Detect) SARS-CoV-2 (PCR) Not detected (Not Detecte) Coronavirus NL63 (PCR) Not detected (Not Detect) Human Metapneumovir PCR Not detected (Not Detect) Influenza Type A (PCR) Not detected (Not Detect) Influenza Type B (PCR) Not detected (Not Detect) M. pneumoniae (PCR) Not detected (Not Detect) Parainfluenza 1 (PCR) Not detected (Not Detect) Parainfluenza 2 (PCR) Not detected (Not Detect) Parainfluenza 3 (PCR) Not detected (Not Detect) Parainfluenza 4 (PCR) Not detected (Not Detect) RSV (PCR) Not detected (Not Detect) Entero/Rhino (PCR) Detected H (Not Detect) Discharge Plan Departure Patient Disposition: Home Clinical Impression: Upper respiratory infection Instructions: DI for Viral Upper Respiratory Infection -- Adult Activity Restrictions/Additional Instructions: You were evaluated in the ED today for a cough. The respiratory swab was positive for enterovirus/rhino virus which is basically the cold virus. Your heart and lungs sound normal. You are being prescribed Tessalon Perles for your cough. Continue to hydrate well. Return to the ED if you have worsening symptoms, chest pain, shortness of breath. Prescriptions: New benzonatate 200 mg capsule 200 mg PO TID PRN (Reason: cough) Qty: 30 0RF No Action meclizine 25 mg tablet 25 mg PO BID PRN (Reason: dizziness) Qty: 20 0RF Classic 28 mg iron- 800 mcg Tablet 1 tab PO DAILY ibuprofen 600 mg Tablet 600 mg PO Q6HR PRN (Reason: Pain, Mild (1-3)) Qty: 90 1RF docusate sodium [Colace] 100 mg capsule 100 mg PO BID Qty: 60 0RF Referrals: Max Peres MD [Primary Care Provider] - Stand Alone Forms: Patient Portal/API/Survey ED Sign-out <Rosa Decker DO - Last Filed: 09/17/24 19:43> Cosign ED Attending [place] Attestation: I was immediately available in the department for consultation.
== END 2024-09-16 11:34 | disposition home or self-care (01) ==
PROVIDERS: Emergency Medicine; Emergency Provider Student in an Organized Health Care Education/Training Program; PCP Family Medicine
DX: J06.9 Acute upper respiratory infection, unspecified (principal); B34.8 Other viral infections of unspecified site; Z11.52 Encounter for screening for COVID-19
CPT/HCPCS: 87633; 99281; 99282